=== PATIENT | female | born 1940 | race Caucasian/White ===

== ENCOUNTER 2017-03-30 19:46 | Inpatient (IN) | payer OTHER ==
[~2017-03-30] VITALS: Ht 160 cm; Wt 57.2 kg
--- NOTE | 2017-03-30 20:01 | ED DYSPNEA/ASTHMA COMPLAINT ---
History of Present Illness General Chief Complaint: Dyspnea (COPD, CHF, Other) Stated Complaint: BIBA SOB Source: patient Exam Limitations: no limitations Vital Signs & Intake/Output Vital Signs & Intake/Output Vital Signs Date Time Temp Pulse Resp B/P B/P Pulse O2 O2 Flow FiO2 Mean Ox Delivery Rate 04/03 1101 134/70 04/03 0823 98 Room Air Room Air 04/03 0636 98.3 73 18 164/88 97 Room Air 04/02 2211 97.8 73 18 146/78 97 Room Air 04/02 1600 Room Air 04/02 1600 96 Room Air 04/02 1516 98.3 79 20 122/60 95 Room Air ED Intake and Output 04/03 0000 04/02 1200 Intake Total 850 Output Total 1100 Balance -250 Intake, Oral 850 Number 0 Bowel Movements Output, Urine 1100 Allergies Coded Allergies: hydromorphone (From DILAUDID) (Severe, SEIZURE 03/30/17) codeine (Intermediate, SWELLINGS 03/30/17) propoxyphene (From DARVON) (SWELLING 03/30/17) Reconcile Medications Albuterol Sulfate (Proair Hfa) 90 MCG HFA.AER.AD 2 PUF INH PRN RESP. ( Reported) Apixaban (Eliquis) 5 MG TABLET 5 MG PO BID afib . Aspirin (Ecotrin*) 81 MG TABLET.DR 1 TAB PO DAILY HEART/BLOOD (Reported) Diazepam 5 MG TABLET 0.5 TAB PO PRN AMXIETY (Reported) Fluticasone Propionate 50 MCG/ACTUATION SPRAY.SUSP 1 SPRAY [place] DAILY ALLERGIES (Reported) Hydrochlorothiazide 25 MG TABLET 1 TAB PO DAILY DIURETIC (Reported) Lidocaine (Lidoderm) 5 % ADH..PATCH 1 PAT TOP DAILY PAIN (Reported) may wear up to 12 hours Omeprazole 20 MG TABLET.DR 1 TAB PO DAILY GI (Reported) Oseltamivir Phosphate (Tamiflu) 75 MG CAPSULE 75 MG PO BID influenza . Prednisone 5 MG TABLET 1 TAB PO DAILY COPD . Sotalol (Betapace) 80 MG TABLET 40 MG PO BID heart . Tiotropium Br/Olodaterol HCl (Stiolto Respimat Inhal [place]) 2.5 MCG-2.5 MCG/ ACTUATION MIST.INHAL 2 PUFF INH DAILY RESP. (Reported) Triage Note: SEE NURSES NOTES Triage Nurses Notes Reviewed? yes Onset: Gradual Duration: hour(s):, constant, continues in ED, getting worse, waxing and waning Severity: moderate, severe HPI: Patient presents for evaluation of worsening shortness of breath. Patient denies any fever, cold symptoms or productive cough. Past History Travel History Traveled to [place] past 21 day No Medical History Any Pertinent Medical History? see below for history Surgical History Surgical History: non-contributory Psychosocial History Illicit Drug Use: denies illicit drug use Family History Hx Contributory? No Review of Systems Review of Systems Constitutional: Reports: no symptoms. EENTM: Reports: no symptoms. Respiratory: Reports: see HPI. Cardiovascular: Reports: no symptoms. GI: Reports: no symptoms. Genitourinary: Reports: no symptoms. Musculoskeletal: Reports: no symptoms. Skin: Reports: no symptoms. Neurological/Psychological: Reports: no symptoms. Hematologic/Endocrine: Reports: no symptoms. Immunologic/Allergic: Reports: no symptoms. All Other Systems: Reviewed and Negative Physical Exam Physical Exam Respiratory: see below Comments: Gen.: Well-nourished, well-developed, no acute respiratory distress. Head: Normocephalic, atraumatic. Eyes: Normal inspection bilaterally Ears: Normal inspection bilaterally Nose: Normal inspection Throat/mouth : Moist mucosa Neck: Supple, full range of motion, no goiter Heart: Rapid IRRegular rate and rhythm, no murmurs rubs or gallops Lungs: Decreased air entry bilaterally with scattered end expiratory wheezing and mild rhonchi Chest: Nontender Back: Normal range of motion Abdomen: Soft, nontender, nondistended, normal bowel sounds Extremities: Normal range of motion grossly, equal radial pulses, no cyanosis clubbing or edema Neurologic: Cranial nerves grossly intact, speech is clear Skin: warm and dry Psychiatric: Calm, cooperative, no apparent delusions or hallucinations Core Measures ACS in differential dx? No CVA/TIA Diagnosis No Sepsis Present: No Sepsis Focused Exam Completed? No Progress Differential Diagnosis: AMI, bronchitis, CHF, COPD, unstable angina, DYSRHYTHMIA Plan of Care: Orders Procedure Date/time Status BASIC ELECTROLYTES PLUS BUN&CR 04/03 0734 Complete TOTAL TRIODOTHYROXINE 04/03 0600 Complete Discharge Patient 04/03 UNK Active MISSING MEDICATION FORM 04/03 UNK Active RT RE-EVALUATION 04/02 2303 Complete RT: Reevaluation 04/02 2300 Active AEROSOL CHG 04/02 UNK Complete Current Medications Sig/Yamila Start time Last Medication Dose Stop Time Status Admin Prednisone 10 MG DAILY 04/04 1000 AC 04/05 1000 Albuterol Sulfate 3 ML TID 04/03 1000 AC 04/03 (Proventil) 1235 Ipratropium [place] 2.5 ML TID 04/03 1000 AC 04/03 (Atrovent) 1235 Fluticasone 2 SPRAY DAILY 04/02 1000 AC 04/03 Propionate 0928 (Flonase) Nitroglycerin 0.4 MG Q 5 MINUTES X 3 DO.. 04/02 0215 AC 04/02 (Nitrostat) 0205 Docusate Sodium 100 MG DAILY 04/01 2100 AC 04/03 (Colace) 0927 Simethicone 80 MG Q6P PRN 04/01 2100 AC 04/01 (Mylicon) 2137 Sodium Chloride 2 SPRAY Q4P PRN 04/01 1100 AC 04/01 (Nasal) 1632 Melatonin 5 MG AT BEDTIME 03/31 2200 AC 04/01 (Melatonin) 213 Apixaban 5 MG BID 03/31 1529 AC 04/03 (Eliquis) 0927 Sotalol HCl 40 MG BID 03/31 1527 AC 04/03 (Betapace) 0926 Aspirin Buffered 81 MG DAILY 03/31 1000 AC 04/03 (Ecotrin) 0927 Guaifenesin 600 MG Q12 03/31 1000 AC 04/03 (Mucinex) 0927 Hydrochlorothiazide 25 MG DAILY 03/31 1000 AC 04/03 (Hydrodiuril) 0927 Lidocaine 1 PAT 0700 03/31 0700 AC 04/02 (Lidoderm) 0701 Omeprazole 20 MG DAILY AC 03/31 0700 AC 04/03 (Prilosec) 0628 Oseltamivir Phosphate 75 MG BID 03/31 0400 AC 04/03 (Tamiflu 75MG) 04/04 0359 0927 Acetaminophen 650 MG Q6P PRN 03/31 0315 AC (Tylenol) Laboratory Tests 04/03/17 0800: Anion Gap 12, Estimated GFR > 60, BUN/Creatinine Ratio 24.3 04/03/17 0715: TSH 0.381, Free T4 1.21, Total T3 0.86 L, CBC w Diff NO MAN DIFF REQ, RBC 4.65, MCV 87.1, MCH 29.0, MCHC 33.3, RDW 13.9, MPV 8.3, Gran % 66.4, Lymphocytes % 26.2, Monocytes % 6.8, Eosinophils % 0.1, Basophils % 0.5, Absolute Granulocytes 4.8, Absolute Lymphocytes 1.9, Absolute Monocytes 0.5, Absolute Eosinophils 0, Absolute Basophils 0 Diagnostic Imaging: Discussed w/RAD: Radiology Read. CXR Impression: PATIENT: WILFREDO GERARDO (APRIL) PRESENT AGE: 76 PATIENT ACCOUNT NO: [id number] : 40 LOCATION: [facility] ORDERING PHYSICIAN: Yonathan Holly MD SERVICE DATE: 03/30/17 EXAM TYPE : RAD - XRY-PORTABLE CHEST XRAY EXAMINATION: XR PORTABLE CHEST CLINICAL INFORMATION: CHF rapid A. fib axial COMPARISON: CT chest February 2017 TECHNIQUE: Portable frontal view of the chest was obtained. FINDINGS: There is an opacity in the right upper lobe corresponding to the mass seen on prior CT. Lungs otherwise clear Calcification of the dorsal aorta. Cardiac silhouette within normal limits. Pulmonary vascularity unremarkable Bone and soft tissues unremarkable IMPRESSION: Opacity in right upper lobe corresponds to the area of mass seen on prior CT Lungs otherwise clear. DICTATED BY: Bill Ferreira MD DATE/TIME DICTATED:03/30/172041 SHOVE UP:ALINE DATE/TIME TRANSCRIBED:03/30/172041 CONFIDENTIAL, DO NOT COPY WITHOUT APPROPRIATE AUTHORIZATION. <Electronically signed in Other Vendor System> SIGNED BY: Bill Ferreira MD 03/30/172048 Initial ED EKG: rAPID ATRIAL FIBRILLATION WITH NONSPECIFIC st SEGMENT CHANGES LIKELY RATE RELATED. Prior EKG: changed Rhythm Strip: atrial fibrillation Comments: 03/30/2017 8:27:00 PM Wilfredo is comfortable appearing and offers no specific complaint at this time. Her heart rate is in the 130s (after a Cardizem bolus and initiation of Cardizem drip) and auscultation of the lungs reveals improvement of the bilateral wheezing. She states she hasn't had her carvedilol today so I will order this. Her oxygen saturation is normal on the nasal cannula. I have held on inhaled bronchodilators due to the possibility of increasing her heart rate further. Departure Departure Disposition: STILL A PATIENT Condition: Stable Clinical Impression Primary Impression: New onset atrial fibrillation Referrals: Sherwin MANCINI,Tal Lopes Departure Forms: Customer Survey General Discharge Information Prescriptions: Current Visit Scripts Prednisone 1 TAB PO DAILY #30 TAB Ref 1 . Sotalol (Betapace) 40 MG PO BID #30 TAB Ref 1 . Apixaban (Eliquis) 5 MG PO BID #30 TAB Ref 1 . Oseltamivir Phosphate (Tamiflu) 75 MG PO BID #3 TAB . Admission Note Spoke With: Dulce Sommers MD Documentation of Exam: Documentation of any treatments & extenuating circumstances including Concerns Regarding Discharge (functional status, medication knowledge or non-compliance, living conditions, etc.) that warrant an admission rather than observation: Patient presents in new-onset rapid atrial fibrillation resulting in dyspnea and weakness. She now requires continuous cardiac monitoring for the possibility of uncontrolled atrial fibrillation with rapid ventricular response, hypotension, dyspnea, syncope and cardiorespiratory collapse. She cannot be safely treated as an outpatient. She now requires continuous cardiac monitoring, anticoagulation to prevent cardioembolic phenomenon, cardiology consultation and treatment with an IV Cardizem drip. Given the patient's age and new onset of atrial fibrillation patient will require adjustment of current medications in the edition of rate controlling medications and anticoagulation. I feel she will require a multiple day hospitalization. Critical Care Note Critical Care Note Critical Care Time: 30-74 min
[2017-03-30 20:29] LABS: ABSOLUTE BASOPHIL COUNT 0 /CUMM (0.0-0.2); ABSOLUTE EOSINOPHIL COUNT 0 /CUMM (0.0-0.7); ABSOLUTE GRANULOCYTE CT 10.7 /CUMM (1.4-6.5); ABSOLUTE LYMPH COUNT 2.1 /CUMM (1.2-3.4); ABSOLUTE MONOCYTE COUNT 0.7 /CUMM (0.10-0.60); BASOPHIL % 0.3 % (0.0-2.0); EOSINOPHIL % 0.3 % (0-5); GRANULOCYTE % 78.8 % (42.2-75.2); HEMATOCRIT 44.9 % (37-47); MEAN CORPUSCULAR HGB 28.7 PG (27.0-31.0); MEAN CORPUSCULAR HGB CONC 32.9 G/DL (33.0-37.0); MEAN CORPUSCULAR VOLUME 87.4 FL (81.0-99.0); MEAN PLATELET VOLUME 8.6 FL (7.4-10.4); PLATELET COUNT 230 /CUMM (130-400); RBC DISTRIBUTION WIDTH 13.9 % (11.5-14.5); RED BLOOD CELL CT 5.14 /CUMM (4.20-5.40); WHITE BLOOD CELL COUNT 13.5 /CUMM (4.8-10.8)
--- NOTE | 2017-03-30 20:49 | RADIOLOGY REPORT ---
EXAMINATION: XR PORTABLE CHEST CLINICAL INFORMATION: CHF rapid A. fib axial COMPARISON: CT chest February 2017 TECHNIQUE: Portable frontal view of the chest was obtained. FINDINGS: There is an opacity in the right upper lobe corresponding to the mass seen on prior CT. Lungs otherwise clear Calcification of the dorsal aorta. Cardiac silhouette within normal limits. Pulmonary vascularity unremarkable Bone and soft tissues unremarkable IMPRESSION: Opacity in right upper lobe corresponds to the area of mass seen on prior CT Lungs otherwise clear.
[2017-03-30 21:04] LABS: PT 10.1 SEC (9.4-12.5)
--- NOTE | 2017-03-30 22:31 | History & Physical ---
Marino MANCINI,Jose 03/30/17 2812: General Information and HPI MD Statement: I have seen and personally examined WILFREDO GERARDO (APRIL) and documented this H&P. The patient is a 76 year old F who presented with a patient stated chief complaint of [shortness of breath, cough, palpitations]. Source of Information: patient Exam Limitations: no limitations History of Present Illness: Patient is a 76-year-old female with a PMH significant for lung cancer, COPD, HTN, paroxysmal A. fib not on anticoagulation, who presented complaining of an approximately one-week history of worsening shortness of breath. Within the last week she's also been wheezing and experiencing intermittent palpitations and a nonproductive cough. She endorses nausea and dry heaving today as well as mild pain of her anterior shoulders which extends across her anterior chest as well. she denies any, fever, chills. On a previous hospital admission several years ago for pneumonia she had paroxysmal atrial fibrillation which reverted back to normal sinus rhythm she reports followed up with a stapler hand and is not currently on anticoagulation. Past History Travel History Traveled to [place] past 21 day No Medical History Cardiovascular: hypertension, hyperlipidemia, PAF Respiratory: COPD, Lung cancer Surgical History Surgical History: RLL resection, numerous spinal surgeries Past Family/Social History Family History Relations & Conditions if any Relation not specified for: FH: CAD (coronary artery disease) Psychosocial History Where do you live? Home Who Do You Live With? self Primary Language: Greek Smoking Status: Former Smoker (40) ETOH Use: occasional use Illicit Drug Use: denies illicit drug use Review of Systems Review of Systems Constitutional: Reports: malaise. Denies: chills, diaphoresis. EENTM: Denies: blurred vision, double vision, visual changes. Cardiovascular: Reports: chest pain, palpitations. Denies: syncope. Respiratory: Reports: cough, short of breath, wheezing. Denies: orthopnea. GI: Reports: no symptoms. Genitourinary: Reports: no symptoms. Musculoskeletal: Reports: joint pain (SHOULDER PAIN). Skin: Reports: no symptoms. Neurological/Psychological: Reports: no symptoms. Exam & Diagnostic Data Last 24 Hrs of Vital Signs/I&O Vital Signs Date Time Temp Pulse Resp B/P B/P Pulse O2 O2 Flow FiO2 Mean Ox Delivery Rate 03/31 0836 118/64 03/31 0812 96 Nasal 2.0L Cannula 03/31 0600 98.4 65 20 110/72 97 Nasal 1.0L Cannula 03/31 0216 98.4 74 20 110/72 96 Nasal 1.0L Cannula 03/31 0206 96 Room Air 03/31 0132 76 20 146/80 98 Room Air 03/31 0026 73 20 109/63 99 Room Air 03/31 0007 98 Nasal 2.0L Cannula 03/30 2334 98.5 96 22 111/62 97 2.0L 03/30 2200 135 129/69 03/30 2200 128 121/72 03/30 2102 98.5 135 22 129/69 96 Nasal 2.0L Cannula 03/30 2041 96 Nasal 2.0L Cannula 03/30 2005 147 137/84 03/30 1956 147 28 137/84 96 Nasal 2.0L Cannula Intake & Output 03/31 1600 03/31 0800 03/31 0000 Intake Total 220 0 Output Total 400 Balance -180 0 Intake, IV 100 Intake, Oral 120 0 Output, Urine 400 Patient 126 lb Weight Physical Exam General Appearance Alert, Oriented X3, Cooperative Skin Temp/Moisture Exam: Warm/Dry Sepsis Skin Exam (color): Normal for Ethnicity HEENT Atraumatic, PERRLA, EOMI, Mucous Membr. moist/pink Cardiovascular Regular Rate, Normal S1, Normal S2 Lungs DIFFUSE WHEEZING AND RHONCHI, DIMINISHED BREATH SOUNDS OF THE R LOWER LUNG FIELD, TACHYPNIC AND IN MILD RESPIRATORY DISTRESS, NOT USING ACCESSORY MUSCLES Abdomen Normal Bowel Sounds, Soft, No Tenderness Neurological Normal Speech, Strength at 5/5 X4 Ext, Normal Tone, Sensation Intact Extremities No Clubbing, No Cyanosis, No Edema Last 24 Hrs of Labs/Bunny: Laboratory Tests 03/31/17 040: Troponin I 0.04 03/31/17399: Anion Gap 12, Estimated GFR > 60, BUN/Creatinine Ratio 28.3 H, APTT > 120 *H, CBC w Diff NO MAN DIFF REQ, RBC 4.70, MCV 86.9, MCH 28.9, MCHC 33.3, RDW 14.2, MPV 8.5, Gran % 86.6 H, Lymphocytes % 12.0 L, Monocytes % 1.3 L, Eosinophils % 0.1, Basophils % 0, Absolute Granulocytes 4.7, Absolute Lymphocytes 0.6 L, Absolute Monocytes 0.1, Absolute Eosinophils 0, Absolute Basophils 0 03/30/172014: Anion Gap 17 H, Estimated GFR > 60, BUN/Creatinine Ratio 20.0, Glucose 209 H, Calcium 9.6, Magnesium 1.7, Total Bilirubin 0.6, Direct Bilirubin 0.3, AST 19, ALT 26, Alkaline Phosphatase 73, Troponin I < 0.01, Krp-N-Mdvmduyrmqf Pept 932 H, Total Protein 6.9, Albumin 4.3, PT 10.1, INR 0.96, D-Dimer High Sensitivty < 200, CBC w Diff NO MAN DIFF REQ, RBC 5.14, MCV 87.4, MCH 28.7, MCHC 32.9 L, RDW 13.9, MPV 8.6, Gran % 78.8 H, Lymphocytes % 15.6 L, Monocytes % 5.0, Eosinophils % 0.3, Basophils % 0.3, Absolute Granulocytes 10.7 H, Absolute Lymphocytes 2.1, Absolute Monocytes 0.7 H, Absolute Eosinophils 0, Absolute Basophils 0 Microbiology 03/31 010 NASOPHARYN: Influenza Virus A & B Rapid Smear - COMP INFLUENZA TYPE A Diagnostic Data EKG Results AFIB subsequently reverted to normal sinus rhythm CXR Results Opacity in right upper lobe corresponds to the area of mass seen on prior CT Lungs otherwise clear. Assessment/Plan Assessment: Patient is a 76-year-old female with a PMH significant for lung cancer, COPD, HTN, paroxysmal A. fib not on anticoagulation, who presented complaining of an approximately one-week history of worsening shortness of breath. She was found to be in A. fib with RVR which has subsequently reverted back to normal sinus rhythm, also wheezes on exam and was in respiratory distress. Problem list #New-onset A. fib with RVR, reverted back to sinus rhythm status post metoprolol and IV Cardizem drip #Influenza #COPD exacerbation #History of HTN, HLD, lung cancer Plan -Admit to telemetry -continuous telemetry monitoring -Cardizem has been discontinued now that she has converted back to normal sinus rhythm, HR in the 70s -Echocardiogram -IV heparin -Cardiology consult -Serial troponins and EKGs to rule out ACS -IV Solu-Medrol 40 mg twice a day -TRC/nebs -Mucinex -Tamiflu -Dr. Courtney was informed of this patient's admission through his answering service -Heart healthy diet -DVT prophylaxis: IV heparin, ALPS -CODE STATUS: Full code As Ranked By This Provider Problem List: 1. New onset atrial fibrillation Core Measures/Misc (11/12) Acute Coronary Syndrome ACS Diagnosis: No Congestive Heart Failure Congestive Heart Failure Diagnosis No Cerebrovascular Accident CVA/TIA Diagnosis: No VTE (View Protocol) VTE Risk Factors Age>40 No Mechanical VTE Prophylaxis d/t N/A MechProphylax Ordered No VTE Pharm Prophylaxis d/t NA PharmProphylax ordered Sepsis (View protocol) Sepsis Present: No Kathy Balbuena MD 03/31/17 0321: General Information and HPI Allergies/Medications Allergies: Coded Allergies: hydromorphone (From DILAUDID) (Severe, SEIZURE 03/30/17) codeine (Intermediate, SWELLINGS 03/30/17) propoxyphene (From DARVON) (SWELLING 03/30/17) Home Med list Albuterol Sulfate (Proair Hfa) 90 MCG HFA.AER.AD 2 PUF INH PRN RESP. ( Reported) Amoxicillin/Clavulanate Potass (Amox-Clav 875-125 MG Tablet) 875 MG-125 MG TABLET 1 TAB PO BID ABX (Reported) Aspirin (Ecotrin*) 81 MG TABLET.DR 1 TAB PO DAILY HEART/BLOOD (Reported) Carvedilol 25 MG TABLET 1 TAB PO BID HEART/BP (Reported) Diazepam 5 MG TABLET 0.5 TAB PO PRN AMXIETY (Reported) Fluticasone Propionate 50 MCG/ACTUATION SPRAY.SUSP 1 SPRAY [place]B DAILY ALLERGIES (Reported) Hydrochlorothiazide 25 MG TABLET 1 TAB PO DAILY DIURETIC (Reported) Lidocaine (Lidoderm) 5 % ADH..PATCH 1 PAT TOP DAILY PAIN (Reported) may wear up to 12 hours Omeprazole 20 MG TABLET.DR 1 TAB PO DAILY GI (Reported) Prednisone 10 MG TABLET 1 TAB PO DAILY STEROID (Reported) Tiotropium Br/Olodaterol HCl (Stiolto Respimat Inhal [place]) 2.5 MCG-2.5 MCG/ ACTUATION MIST.INHAL 2 PUFF INH DAILY RESP. (Reported) Resident Review Statement Resident Statement: examined this patient, discussed with international first officer, agreed with international first officer, reviewed EMR data (avail), reviewed images, amended to note Other Findings: 76-year-old female with past medical history of hypertension, COPD, remote history of paroxysmal A. fib, who presents with a one-week history of worsening shortness of breath and nonproductive cough. She reports felling palpitations within this time frame as well which she attributed to being anxious, [place] also has nausea but no vomiting. She denies chest pain, syncope, blurry vision or one -sided weakness. 2 years ago while being admitted to the hospital for an upper respiratory treat tract infection, she was diagnosed with atrial fibrillation she converted while in the hospital and was not sent home on any anticoagulation. 20 years ago she was diagnosed with lung cancer in her right lower lung which was treated with surgical resection. However 3 years ago she had a recurrence of cancer in the right lung which is inoperable and she is currently taking up Opdivo, last treatment was [address] Courtney. Her lung cancer is currently in remission. She was previously on nasal cannula O2 at home but about 1 year ago it was stopped due to Medicare not paying for it anymore because she had improved PFTs. Exam-AAO 3, mild respiratory distress, expiratory wheezing, regular rate and rhythm, nontender abdomen with normal bowel sounds, no pedal edema. Labs as above; rapid flu positive Assessment 1. Paroxysmal atrial fibrillation-possibly due to influenza Patient converted back to sinus rhythm after starting Cardizem drip 2. Influenza 3. Hypertension 4. History of COPD 5. History of lung cancer in the right lung on Opdivocurrently in remission Plan Admit to telemetry unit for close monitoring Continue IV Heparin; pt will likely need personal investment adviser AC which can be decided by managing team/stapler hand ANGELLA Cardizem drip Trend EKG and troponin Start Tamiflu 75 mg twice daily 5 days TRC nebs Oxygen as needed IV Solu-Medrol 40 mg twice daily Mucinex twice daily Cardiology consult in a.m. Courtesy consult to Dr. Silvestre in a.m. Check echocardiogram CBC, BEP, Lipid panel, TSH Resume important home medications Heart Healthy diet DVT ppx with IV Heparin Dulce Tsang 03/31/17 0511: Attending MD Review Statement Attending Statement Attending MD Statement: examined this patient, discuss w/resident/PA/PST SUPERVISOR, agreed w/resident/PA/PST SUPERVISOR, reviewed EMR data (avail), reviewed images, amended to note Attending Assessment/Plan: CC: Heart racing, shortness of breath PMH: HTN, COPD, history of lung cancer 20 years back S/P resection recurrence since last 3 years Patient came to ER for chest tightness, palpitations and worsening shortness of breath wheezing. Since last 4-5 days patient has been noticing upper respiratory symptoms with nasal congestion, nasal discharge, postnasal drip it was followed by chest congestion, cough with mucus production, denies any fever or chills cough and shortness of breath progressively worsened but this evening she noticed pain running around anterior part of the chest around shoulders and then left arm pain as if somebody is stabbing on her left arm. She was noticing severe palpitations, wheezing and could not catch her breath so she called EMS. She denies any leg swellings, she cannot lie down flat. She also complains of abdominal pain, bandlike, nonradiating, non-severe. Whenever she has upper respiratory symptoms she is worried about getting infection in her chest. She is from [place], moved back to [place] in December, lost 13 year partner in [place] recently. She quit smoking 20 years back. She had Hx a fib 2 year back, transiently, not on AC. Vitals: Afebrile, pulse 147 on arrival, RR 28, blood pressure 137/54, saturating 96% on 2 L nasal cannula On exam: A O 3, cooperative, in moderate respiratory distress, accessory muscles in use, neck supple, JVD normal, no lymphadenopathy, mucosa dry, no focal neurological deficit, no dependent edema, no obvious skin rashes or inflammation CVS: S1-S2, RRR. RS: Diffuse wheezing in all lung sanchez. Abdomen: Soft, NT, ND, bowel sounds present. Labs: WBC 13.5, hemoglobin 14.8, hematocrit 44.9, platelet 230, neutrophils 78%, sodium 139, potassium 3.0, chloride 97, BUN 25, creatinine 0.6, BUN 12, glucose 209, calcium 9.6, proBNP 932, INR 0.96, d-dimer less than 200 Influenza positive CXR: Opacity in right upper lobe corresponds to the area of mass seen on prior CT Lungs otherwise clear. Initial ECG A. fib with RVR possible ST depressions probably secondary to rate Assessment and plan 76-year-old female with past medical history significant for COPD, hypertension and recurrence of her lung cancer presented in ER for upper respiratory symptoms since last 3-4 days now progressively worsening with shortness of breath, cough with mucus production, denies fever or chills but this evening she noticed severe shortness of breath, severe wheezing, chest tightness and palpitations, she called EMS and was brought in ER. Patient was found to be in A. fib with RVR and severely tachypneic. She was given Cardizem IV push followed by started on Cardizem drip. Patient responded to this treatment well and later on she converted to sinus rhythm. Given her comorbidities she was started on heparin drip. On auscultation she is diffusely wheezing throughout the lung sanchez, appears that has COPD exacerbation secondary to upper respiratory infection. She is influenza positive, will treat her influenza given her underlying lung cancer and other comorbidities. + A. fib with RVR + COPD exacerbation + Influenza a + History of right sided lung cancer recurrence, HTN - Admit to telemetry - Try to taper Cardizem, patient received a dose of carvedilol in ER - Continue IV heparin - Serial troponin and EKGs - Cardiology consult in a.m. - 2-D echocardiogram - IV methylprednisolone 40 mg twice a day - Continue by mouth Tamiflu - Continue Mucinex, TR nebs - Inform Dr. Silvestre about patient being in hospital
[2017-03-30] MEDS ORDERED: PREDNISONE10 M2 PO (22:37)
[2017-03-30] MEDS ORDERED: AMOX-CLAV 875-1 EACH PO (22:38)
[2017-03-30] MEDS ORDERED: OMEPRAZOLE20 M3 PO (22:39)
[2017-03-30] MEDS ORDERED: ASPIRIN EC81 M1 PO (22:40)
[2017-03-30] MEDS ORDERED: HYDROCHLOROTHIA25 M1 PO (22:40)
[2017-03-30] MEDS ORDERED: LIDODERM1 EACH TOP (22:40)
[2017-03-30] MEDS ORDERED: DIAZEPAM5 M1 PO (22:45)
[2017-03-30] MEDS ORDERED: FLUTICASONE PRO16 GM NASB (22:45)
[2017-03-30] MEDS ORDERED: STIOLTO RESPIMAT4 GM INH (22:46)
[2017-03-30] MEDS ORDERED: PROAIR HFA8.5 GM INH (22:48)
[2017-03-30] MEDS ORDERED: CARVEDILOL25 M1 PO (23:08)
[2017-03-31 02:16] VITALS: BP 110/72
[2017-03-31 04:37] LABS: ABSOLUTE BASOPHIL COUNT 0 /CUMM (0.0-0.2); ABSOLUTE EOSINOPHIL COUNT 0 /CUMM (0.0-0.7); ABSOLUTE GRANULOCYTE CT 4.7 /CUMM (1.4-6.5); ABSOLUTE LYMPH COUNT 0.6 /CUMM (1.2-3.4); ABSOLUTE MONOCYTE COUNT 0.1 /CUMM (0.10-0.60); BASOPHIL % 0 % (0.0-2.0); EOSINOPHIL % 0.1 % (0-5); GRANULOCYTE % 86.6 % (42.2-75.2); HEMATOCRIT 40.8 % (37-47); MEAN CORPUSCULAR HGB 28.9 PG (27.0-31.0); MEAN CORPUSCULAR HGB CONC 33.3 G/DL (33.0-37.0); MEAN CORPUSCULAR VOLUME 86.9 FL (81.0-99.0); MEAN PLATELET VOLUME 8.5 FL (7.4-10.4); PLATELET COUNT 228 /CUMM (130-400); RBC DISTRIBUTION WIDTH 14.2 % (11.5-14.5)
--- NOTE | 2017-03-31 05:12 | Admission Certification ---
Admission Certification Certification Statement - As attending physician, I certify that at the time of - admission, based on clinical presentation, severity of - symptoms, need for further diagnostic testing and - therapeutic interventions, and risk of adverse outcomes - without in-hospital treatment, in my clinical assessment, - this patient requires an acute hospital stay for a minimum - of two nights or longer. I have also considered psychsocial - factors such as support system, advanced age, financial - issues, cognitive issues, and failed out-patient treatments, - past re-admission history, safety of patient, and lack of - compliance as applicable. Specific rationale supporting this admission is: A. fib with RVR, Influenza, COPD exacerbation
[2017-03-31 05:22] LABS: PTT > 120 SEC (25-37)
[2017-03-31 05:27] LABS: WHITE BLOOD CELL COUNT 5.4 /CUMM (4.8-10.8)
[2017-03-31 06:00] VITALS: BP 110/72
--- NOTE | 2017-03-31 06:34 | PN- Housestaff ---
See Addendum Subjective Follow-up For: 1. Paroxysmal atrial fibrillation-possibly due to influenza Patient converted back to sinus rhythm after starting Cardizem drip 2. Influenza 3. Hypertension 4. History of COPD 5. History of lung cancer in the right lung on Opdivocurrently in remission Complaints: no complaints Tele-Events Since Last Visit: SR 66-74; converted from Afib to SR overnight Subjective: Pt seen and examined, feels much better compared to yesterday but still SOB Review of Systems Constitutional: Reports: no symptoms. Objective Last 24 Hrs of Vital Signs/I&O Vital Signs Date Time Temp Pulse Resp B/P B/P Pulse O2 O2 Flow FiO2 Mean Ox Delivery Rate 03/31 0836 118/64 03/31 0812 96 Nasal 2.0L Cannula 03/31 0600 98.4 65 20 110/72 97 Nasal 1.0L Cannula 03/31 0216 98.4 74 20 110/72 96 Nasal 1.0L Cannula 03/31 0206 96 Room Air 03/31 0132 76 20 146/80 98 Room Air 03/31 0026 73 20 109/63 99 Room Air 03/31 0007 98 Nasal 2.0L Cannula 03/30 2334 98.5 96 22 111/62 97 2.0L 03/30 2200 135 129/69 03/30 2200 128 121/72 03/30 2102 98.5 135 22 129/69 96 Nasal 2.0L Cannula 03/30 2042 96 Nasal 2.0L Cannula 03/30 2006 147 137/84 03/30 1956 147 28 137/84 96 Nasal 2.0L Cannula Intake & Output 03/31 1600 03/31 0800 03/31 0000 Intake Total 220 0 Output Total 400 Balance -180 0 Intake, IV 100 Intake, Oral 120 0 Output, Urine 400 Patient 126 lb Weight Physical Exam General Appearance: Alert, Oriented X3, Cooperative HEENT: PERRLA, Mucous Membr. moist/pink Cardiovascular: Regular Rate, Normal S1, Normal S2 Lungs: expiratory wheezing Abdomen: Normal Bowel Sounds, Soft, No Tenderness Extremities: No Edema, Normal Pulses Current Medications: Current Medications Sig/Yamila Start time Last Medication Dose Route Stop Time Status Admin Acetaminophen 650 MG Q6P PRN 03/31 0315 AC PO Aspirin Buffered 81 MG DAILY 03/31 1000 AC 03/31 PO 0836 Carvedilol 25 MG BID 03/31 1000 CAN PO Carvedilol 25 MG BID 03/30 2200 AC 03/31 PO 0836 Diltiazem HCl 10 MG ONCE ONE 03/30 2014 DC 03/30 IV 03/30 Diltiazem HCl 125 MG Q12H 03/30 2014 DC 03/30 Sodium Chloride 100 ML IV 203 Diltiazem HCl 0 .STK-MED ONE 03/30 2009 DC IV Diltiazem HCl 0 .STK-MED ONE 03/30 2008 DC .ROUTE Guaifenesin 600 MG Q12 03/31 1000 AC 03/31 PO 0835 Heparin Sodium 25,000 UNIT Q24H 03/30 2345 AC 03/31 (Porcine) IV 0016 Sodium Chloride 500 ML Heparin Sodium 0 .STK-MED ONE 03/30 2208 DC (Porcine) .ROUTE Heparin Sodium 4,000 UNIT ONCE ONE 03/30 2129 DC 03/30 (Porcine) IV 03/30 Heparin Sodium 25,000 UNIT Q24H 03/30 2129 DC 03/30 (Porcine) IV 2230 Sodium Chloride 500 ML Hydrochlorothiazide 25 MG DAILY 03/31 1000 AC 03/31 PO 0836 Ipratropium [place] 2.5 ML ONCE ONE 03/30 2345 DC 03/30 INH 03/30 2346 2353 Ipratropium [place] 2.5 ML ONCE ONE 03/30 2030 DC 03/30 INH 03/30 2030 204 Lidocaine 1 PAT 0700 03/31 0700 AC 03/31 EXT 0605 Melatonin 5 MG AT BEDTIME 03/31 2200 AC PO Methylprednisolone 40 MG DAILY 03/31 1000 AC 03/31 IV 0835 Methylprednisolone 0 .STK-MED ONE 03/30 2040 DC .ROUTE Methylprednisolone 125 MG ONCE ONE 03/30 2029 DC 03/30 IV 03/30 2030 210 Omeprazole 20 MG DAILY AC 03/31 0700 AC 03/31 PO 0605 Oseltamivir Phosphate 75 MG BID 03/31 0400 AC 03/31 PO 04/04 0359 0836 Potassium Chloride 0 .STK-MED ONE 03/30 2324 DC PO Potassium Chloride 40 MEQ ONCE ONE 03/30 2315 DC 03/30 PO 03/30 2316 2348 Prednisone 10 MG DAILY 03/31 1000 CAN PO Last 24 Hrs of Lab/Bunny Results Last 24 Hrs of Labs/Mics: Laboratory Tests 03/31/17 0400: Troponin I 0.04 03/31/17 0400: Anion Gap 12, Estimated GFR > 60, BUN/Creatinine Ratio 28.3 H, APTT > 120 *H, CBC w Diff NO MAN DIFF REQ, RBC 4.70, MCV 86.9, MCH 28.9, MCHC 33.3, RDW 14.2, MPV 8.5, Gran % 86.6 H, Lymphocytes % 12.0 L, Monocytes % 1.3 L, Eosinophils % 0.1, Basophils % 0, Absolute Granulocytes 4.7, Absolute Lymphocytes 0.6 L, Absolute Monocytes 0.1, Absolute Eosinophils 0, Absolute Basophils 0 03/30/172014: Anion Gap 17 H, Estimated GFR > 60, BUN/Creatinine Ratio 20.0, Glucose 209 H, Calcium 9.6, Magnesium 1.7, Total Bilirubin 0.6, Direct Bilirubin 0.3, AST 19, ALT 26, Alkaline Phosphatase 73, Troponin I < 0.01, Jni-E-Aipadoedivd Pept 932 H, Total Protein 6.9, Albumin 4.3, PT 10.1, INR 0.96, D-Dimer High Sensitivty < 200, CBC w Diff NO MAN DIFF REQ, RBC 5.14, MCV 87.4, MCH 28.7, MCHC 32.9 L, RDW 13.9, MPV 8.6, Gran % 78.8 H, Lymphocytes % 15.6 L, Monocytes % 5.0, Eosinophils % 0.3, Basophils % 0.3, Absolute Granulocytes 10.7 H, Absolute Lymphocytes 2.1, Absolute Monocytes 0.7 H, Absolute Eosinophils 0, Absolute Basophils 0 Microbiology 03/31 101 NASOPHARYN: Influenza Virus A & B Rapid Smear - COMP INFLUENZA TYPE A Lines/Diet/Fluids Lines: peripheral lines Assessment/Plan Assessment: 76-year-old female with past medical history of hypertension, COPD, remote history of paroxysmal A. fib, who presents with a one-week history of worsening shortness of breath and nonproductive cough. She reports felling palpitations within this time frame as well which she attributed to being anxious, callejas also has nausea but no vomiting. She denies chest pain, syncope, blurry vision or one -sided weakness. 2 years ago while being admitted to the hospital for an upper respiratory treat tract infection, she was diagnosed with atrial fibrillation she converted while in the hospital and was not sent home on any anticoagulation. Assessment 1. Paroxysmal atrial fibrillation-possibly due to influenza. Patient converted back to sinus rhythm after starting Cardizem drip 2. Influenza 3. Hypertension 4. History of COPD 5. History of lung cancer in the right lung on Opdivocurrently in remission Plan Continue telemetry unit for close monitoring Continue IV Heparin for now; pt will likely need fdc AC which can be decided by managing team/veterinary practitioner Pt converted to SR overnight; cardizem discontinued Troponin EKG and troponin neg Continue Tamiflu 75 mg twice daily 5 days TRC nebs/Oxygen as needed IV Solu-Medrol 40 mg twice daily Mucinex twice daily Cardiology consult in a.m. Courtesy consult to Dr. Silvestre called F/U echocardiogram F/U CBC, BEP, Lipid panel, TSH Resume important home medications IV heprain for DVT ppx Problem List: 1. New onset atrial fibrillation Pain Ratin Pain Location: n/a Pain Goal: Remain pain free Pain Plan: current plan Tomorrow's Labs & Rationales: cbc, bep
[2017-03-31 14:41] VITALS: BP 100/60
--- NOTE | 2017-03-31 14:59 | Cons- Cardiology ---
General Information and HPI Consulting Request Date of Consult: 03/31/17 Requested By: Dulce Sommers MD History of Present Illness: Yair is a 76 year old female with history of lung cancer, COPD, hypertension and paroxysmal atrial fibrillation. Over the past couple weeks this patient has noted shortness of breath and was being treated for an URI. Her breathing continued to decompensate and she was brought to the ER where she was discovered to be in atrial fibrillation with increased heart rate. Ischemic ST depressions were also noted on her ECG. The patient did feel a mild chest discomfort radiating into her left arm and left neck during her episode of tachycardia. Yesterday she did feel some palpitations. The patient has a non-productive cough without fever or chills. Allergies/Medications Allergies: Coded Allergies: hydromorphone (From DILAUDID) (Severe, SEIZURE 03/30/17) codeine (Intermediate, SWELLINGS 03/30/17) propoxyphene (From DARVON) (SWELLING 03/30/17) Home Med List: Albuterol Sulfate (Proair Hfa) 90 MCG HFA.AER.AD 2 PUF INH PRN RESP. ( Reported) Amoxicillin/Clavulanate Potass (Amox-Clav 875-125 MG Tablet) 875 MG-125 MG TABLET 1 TAB PO BID ABX (Reported) Aspirin (Ecotrin*) 81 MG TABLET.DR 1 TAB PO DAILY HEART/BLOOD (Reported) Carvedilol 25 MG TABLET 1 TAB PO BID HEART/BP (Reported) Diazepam 5 MG TABLET 0.5 TAB PO PRN AMXIETY (Reported) Fluticasone Propionate 50 MCG/ACTUATION SPRAY.SUSP 1 SPRAY [place] DAILY ALLERGIES (Reported) Hydrochlorothiazide 25 MG TABLET 1 TAB PO DAILY DIURETIC (Reported) Lidocaine (Lidoderm) 5 % ADH..PATCH 1 PAT TOP DAILY PAIN (Reported) may wear up to 12 hours Omeprazole 20 MG TABLET.DR 1 TAB PO DAILY GI (Reported) Prednisone 10 MG TABLET 1 TAB PO DAILY STEROID (Reported) Tiotropium Br/Olodaterol HCl (Stiolto Respimat Inhal [place]) 2.5 MCG-2.5 MCG/ ACTUATION MIST.INHAL 2 PUFF INH DAILY RESP. (Reported) Review of Systems Review of Systems: A review of systems is remarkable for back pain related to a neuropathy and a band-like tightness around her waist while lying down. Past History Travel History Traveled to [place] past 21 day No Medical History Cardiovascular: hypertension, hyperlipidemia, PAF Respiratory: COPD, Lung cancer Other Medical Hx: neuropathy Surgical History Surgical History: lobectomy of right lung Family History Relations & Conditions If Any: Relation not specified for: FH: CAD (coronary artery disease) Family History Reviewed? Mother: of AAA Son: CAD in 30's Psychosocial History Where Do You Live? Home Who Do You Live With? self Primary Language: Spanish Smoking Status: Former Smoker (40/ Quit 20 yrs ago) ETOH Use: occasional use Illicit Drug Use: denies illicit drug use Exam & Diagnostic Data Vital Signs and I&O Vital Signs Date Time Temp Pulse Resp B/P B/P Pulse O2 O2 Flow FiO2 Mean Ox Delivery Rate 03/31 1441 98.2 69 20 100/60 96 03/31 1132 Nasal 2.0L Cannula 03/31 0836 118/64 03/31 0812 96 Nasal 2.0L Cannula 03/31 0600 98.4 65 20 110/72 97 Nasal 1.0L Cannula 03/31 0216 98.4 74 20 110/72 96 Nasal 1.0L Cannula 03/31 0206 96 Room Air 03/31 0132 76 20 146/80 98 Room Air 03/31 0026 73 20 109/63 99 Room Air 03/31 0007 98 Nasal 2.0L Cannula 03/30 2334 98.5 96 22 111/62 97 2.0L 03/30 2200 135 129/69 03/30 2200 128 121/72 03/30 2102 98.5 135 22 129/69 96 Nasal 2.0L Cannula 03/30 2041 96 Nasal 2.0L Cannula 03/30 2005 147 137/84 03/30 1956 147 28 137/84 96 Nasal 2.0L Cannula Intake & Output 03/31 1600 03/31 0800 03/31 0000 03/30 1600 03/30 0800 03/30 0000 Intake Total 220 0 Output Total 400 Balance -180 0 Intake, IV 100 Intake, Oral 120 0 Output, Urine 400 Patient 126 lb Weight Physical Exam: General: WD/thin female in NAD; alert and oriented x 3 HEENT: NC/AT, PERRL, EOMI Neck: no JVD, no carotid bruit Heart: RRR w/o murmur Lungs: scant wheezing with decreased air movement ABdomen: soft, NT, +ve bowel sounds Extremities: no edema Assessment/Plan Assessment/Plan * This patient has paroxysmal atrial fibrillation with rapid heart rate upon initial presentation. This patient will have a propensity toward atrial fibrillation from elevated pulmonary pressues after her lobectomy for lung cancer. In consideration of this she should be on chronic anticoagulation for stroke prophylaxis. Begin Eliquis 5mg BID. DC Coreg and begin Sotolol at 40mg BID to maintain a sinus rhythm and to control both her heart rate and blood pressure. * check TFT's including a free T4 * Obtain and echocardiogram * This patient likely has myocardial ischemia. We will consider a pharmacologic stress test verses cardiac catheterization when more stable. * Continue therapy for URI Consult Acknowledgment - Thank you for your consult request.
[2017-03-31 15:04] LABS: PTT 69 SEC (25-37)
[2017-03-31 23:30] VITALS: BP 108/54
[2017-04-01 07:04] VITALS: BP 98/67
[2017-04-01 07:53] LABS: ABSOLUTE BASOPHIL COUNT 0 /CUMM (0.0-0.2); ABSOLUTE EOSINOPHIL COUNT 0 /CUMM (0.0-0.7); ABSOLUTE GRANULOCYTE CT 5.1 /CUMM (1.4-6.5); ABSOLUTE LYMPH COUNT 0.8 /CUMM (1.2-3.4); ABSOLUTE MONOCYTE COUNT 0.2 /CUMM (0.10-0.60); BASOPHIL % 0.1 % (0.0-2.0); EOSINOPHIL % 0 % (0-5); GRANULOCYTE % 83.8 % (42.2-75.2); HEMATOCRIT 38.1 % (37-47); MEAN CORPUSCULAR HGB CONC 33.3 G/DL (33.0-37.0); MEAN CORPUSCULAR VOLUME 87.2 FL (81.0-99.0); MEAN PLATELET VOLUME 8.8 FL (7.4-10.4); PLATELET COUNT 226 /CUMM (130-400); RED BLOOD CELL CT 4.37 /CUMM (4.20-5.40); WHITE BLOOD CELL COUNT 6.1 /CUMM (4.8-10.8)
--- NOTE | 2017-04-01 09:57 | PN- Housestaff ---
Melvin MANCINI,Isis 04/01/17 0956: Subjective Follow-up For: 1. Paroxysmal atrial fibrillation-possibly due to influenza Patient converted back to sinus rhythm after starting Cardizem drip 2. Influenza 3. Hypertension 4. History of COPD 5. History of lung cancer in the right lung on Opdivocurrently in remission Subjective: Patient was seen and examined today. Patient states she continues to have SOB and cough. Patient states she has SOB on exertion, had to shower very slowly this morning. Complains of postnasal drip. Denies chest pain or palpitations. Denies fever/chills, n/v/c/d. Patient notes she had tremors 2 days ago. Denies any today. No acute events overnight Review of Systems Constitutional: Reports: weakness. Cardiovascular: Reports: no symptoms. Respiratory: Reports: see HPI, cough, short of breath. Gastrointestinal: Reports: no symptoms. Genitourinary: Reports: no symptoms. Musculoskeletal: Reports: no symptoms. Neurological/Psychological: Reports: no symptoms. Objective Last 24 Hrs of Vital Signs/I&O Vital Signs Date Time Temp Pulse Resp B/P B/P Pulse O2 O2 Flow FiO2 Mean Ox Delivery Rate 04/01 0825 97 Nasal 2.0L Cannula 04/01 0704 97.3 71 20 98/67 99 / 0700 99 Nasal 1.0L Cannula 04/01 0000 Room Air 03/31 2330 97.8 70 18 108/54 99 Room Air / 2110 96 Room Air / 1630 96 Room Air / 1600 Room Air / 1441 98.2 69 20 100/60 96 / 1132 Nasal 2.0L Cannula Intake & Output 04/01 1600 04/01 0800 02/ 0000 Intake Total 120 120 Output Total Balance 120 120 Intake, Oral 120 120 Physical Exam General Appearance: Alert, Oriented X3, Cooperative, No Acute Distress HEENT: Atraumatic, Mucous Membr. moist/pink Cardiovascular: Normal S1, Normal S2, irregular rate Lungs: diffuse wheezing with prolonged expiration Abdomen: Normal Bowel Sounds, Soft, No Tenderness Extremities: No Clubbing, No Cyanosis, No Edema, Normal Pulses, No Tenderness/ Swelling Vascular: Normal Pulses, Pulses Symmetrical Current Medications: Current Medications Sig/Yamila Start time Last Medication Dose Route Stop Time Status Admin Acetaminophen 650 MG Q6P PRN 03/31 0315 AC PO Albuterol Sulfate 3 ML EVERY 4 HRS/AWAKE 03/31 1200 AC 04/01 INH 0700 Apixaban 5 MG BID 03/31 1529 AC 04/01 PO 0917 Aspirin Buffered 81 MG DAILY 03/31 1000 AC 04/01 PO 0916 Carvedilol 25 MG BID 03/30 2200 DC 03/31 PO 0836 Fluticasone 2 SPRAY DAILY 04/02 1000 AC Propionate [place] Guaifenesin 600 MG Q12 03/31 1000 AC 04/01 PO 0916 Heparin Sodium 25,000 UNIT Q24H 03/30 2345 DC 03/31 (Porcine) IV 0016 Sodium Chloride 500 ML Hydrochlorothiazide 25 MG DAILY 03/31 1000 AC 04/01 PO 0916 Ipratropium [place] 2.5 ML EVERY 4 HRS/AWAKE 03/31 1200 AC 04/01 INH 0700 Lidocaine 1 PAT 0700 03/31 0700 AC 04/01 EXT 0648 Melatonin 5 MG AT BEDTIME 03/31 2200 AC 03/31 PO 2129 Methylprednisolone 40 MG BID 03/31 2200 AC 04/01 IV 0917 Methylprednisolone 40 MG DAILY 03/31 1000 DC 03/31 IV 0835 Omeprazole 20 MG DAILY AC 03/31 0700 AC 04/01 PO 0647 Oseltamivir Phosphate 75 MG BID 03/31 0400 AC 04/01 PO 04/04 0359 0917 Sotalol HCl 40 MG BID 03/31 1527 AC 04/01 PO 0918 Last 24 Hrs of Lab/Bunny Results Last 24 Hrs of Labs/Mics: Laboratory Tests 04/01/17 0630: Anion Gap 13, Estimated GFR > 60, BUN/Creatinine Ratio 33.3 H, CBC w Diff NO MAN DIFF REQ, RBC 4.37, MCV 87.2, MCH 29.0, MCHC 33.3, RDW 14.0, MPV 8.8, Gran % 83.8 H, Lymphocytes % 12.4 L, Monocytes % 3.7, Eosinophils % 0, Basophils % 0.1, Absolute Granulocytes 5.1, Absolute Lymphocytes 0.8 L, Absolute Monocytes 0.2, Absolute Eosinophils 0, Absolute Basophils 0 03/31/17 1425: APTT 69 H 03/31/17 1055: Triglycerides Cancelled, Cholesterol Cancelled, LDL Cholesterol, Calc Cancelled, HDL Cholesterol Cancelled, Cholesterol/HDL Ratio Cancelled, TSH Cancelled 03/31/17 1055: Troponin I 0.03, Triglycerides 105, Cholesterol 203 H, LDL Cholesterol, Calc 126, HDL Cholesterol 56, Cholesterol/HDL Ratio 4, TSH 0.048 L Assessment/Plan Assessment: 76-year-old female with past medical history of hypertension, COPD, remote history of paroxysmal A. fib, who presents with a one-week history of worsening shortness of breath and nonproductive cough. She reports felling palpitations within this time frame as well which she attributed to being anxious, callejas also has nausea but no vomiting. She denies chest pain, syncope, blurry vision or one -sided weakness. 2 years ago while being admitted to the hospital for an upper respiratory treat tract infection, she was diagnosed with atrial fibrillation she converted while in the hospital and was not sent home on any anticoagulation. Assessment 1. Paroxysmal atrial fibrillation-possibly due to influenza. Patient converted back to sinus rhythm after starting Cardizem drip 2. Influenza 3. Hypertension 4. History of COPD 5. History of lung cancer in the right lung on Opdivocurrently in remission 6. Euthyroid sick syndrome vs hyperthyroidism Plan Continue telemetry unit for close monitoring Continue Eliquis Continue Tamiflu 75 mg twice daily 5 days TRC nebs/Oxygen as needed IV Solu-Medrol 40 mg discontinued. Switched to PO Prednisone 40mg daily starting 04/02 Mucinex twice daily Continue Flonase Cardiology on board ECHO Courtesy consult to Dr. Silvestre called Resume important home medications Endocrinology consulted Repeat TSH, T4 Total T3, TSI, thyroid antibodies Thyroid ultrasound DVT PPx: on eliquis Diet: heart healthy Code: full code Problem List: 1. COPD exacerbation 2. New onset atrial fibrillation Pain Ratin Pain Location: n/a Pain Goal: Remain pain free Pain Plan: n/a Tomorrow's Labs & Rationales: cbc jayme Andrews MD,[place] 04/01/17 1100: Attending MD Review Statement Attending Statement Attending MD Statement: examined this patient, discuss w/resident/PA/CHILD DEVELOPMENT INSTRUCTOR, agreed w/resident/PA/CHILD DEVELOPMENT INSTRUCTOR, reviewed EMR data (avail), discussed with nursing, discussed with case mgmt, amended to note Attending Assessment/Plan: Patient seen and examined. Resting comfortably not in any acute distress. She remains jovial. Reports of her reason is improving. Reports mild cough. Denies dyspnea with exertion. She is afebrile hemodynamically stable. She remains in normal sinus rhythm on telemetry monitoring. On examination today she has adequate entry bilaterally with very mild expiratory rhonchi. She is saturating 97-99% on 1-2 L of oxygen. Recommendations: Complete course of Tamiflu. Wean off oxygen supplementation as tolerated. Discontinue Solu-Medrol and begin patient on prednisone 40 mg orally daily tomorrow. Continue bronchodilator therapy. Cardiology consultation appreciated. Patient was started on sotalol to help maintain normal sinus rhythm. She also started on anticoagulant therapy with Eliquis. She is in agreement with this plan. Repeat EKG this morning and follow with the cardiology service regarding need for pharmacological stress test versus cardiac catheterization. -Patient has a low TSH level but normal free T4 level. She is also clinically euthyroid. Recommend evaluation by the endocrinology service.
--- NOTE | 2017-04-01 11:56 | Cons- Endocrinology ---
General Information and HPI Consulting Request Date of Consult: 04/01/17 Requested By: medical team Reason for Consult: abnormal thyroid tests Source of Information: patient, old records Exam Limitations: no limitations History of Present Illness: This 76-year-old woman with a known history of lung cancer and COPD came to the emergency room with shortness of breath and weakness. Her nasal swab was positive for influenza a. She had developed an episode of atrial fibrillation and has converted to sinus rhythm. Her thyroid function tests were done and her TSH was suppressed at 0.040 with a free T4 in the normal range of 2.09. In speaking with the patient she has not been told of a thyroid problem before. However one sister has thyroid disease as well as 2 of her sister's children. Apparently her parents were not known to have thyroid disease. The patient states that she does have some trouble swallowing but this is related to an esophageal problem. She does have to undergo dilatations of her esophagus. Allergies/Medications Allergies: Coded Allergies: hydromorphone (From DILAUDID) (Severe, SEIZURE 03/30/17) codeine (Intermediate, SWELLINGS 03/30/17) propoxyphene (From DARVON) (SWELLING 03/30/17) Home Med List: Albuterol Sulfate (Proair Hfa) 90 MCG HFA.AER.AD 2 PUF INH PRN RESP. ( Reported) Amoxicillin/Clavulanate Potass (Amox-Clav 875-125 MG Tablet) 875 MG-125 MG TABLET 1 TAB PO BID ABX (Reported) Aspirin (Ecotrin*) 81 MG TABLET.DR 1 TAB PO DAILY HEART/BLOOD (Reported) Carvedilol 25 MG TABLET 1 TAB PO BID HEART/BP (Reported) Diazepam 5 MG TABLET 0.5 TAB PO PRN AMXIETY (Reported) Fluticasone Propionate 50 MCG/ACTUATION SPRAY.SUSP 1 SPRAY [place] DAILY ALLERGIES (Reported) Hydrochlorothiazide 25 MG TABLET 1 TAB PO DAILY DIURETIC (Reported) Lidocaine (Lidoderm) 5 % ADH..PATCH 1 PAT TOP DAILY PAIN (Reported) may wear up to 12 hours Omeprazole 20 MG TABLET.DR 1 TAB PO DAILY GI (Reported) Prednisone 10 MG TABLET 1 TAB PO DAILY STEROID (Reported) Tiotropium Br/Olodaterol HCl (Stiolto Respimat Inhal [place]) 2.5 MCG-2.5 MCG/ ACTUATION MIST.INHAL 2 PUFF INH DAILY RESP. (Reported) Review of Systems Review of Systems Constitutional: Denies: chills, fever. Cardiovascular: Denies: chest pain. Respiratory: Reports: cough, short of breath, sputum production. GI: Denies: nausea, vomiting. Musculoskeletal: Denies: back pain. Past History Travel History Traveled to [place] past 21 day No Medical History Cardiovascular: hypertension, hyperlipidemia, PAF Respiratory: COPD, Lung cancer Other Medical Hx: neuropathy Surgical History Surgical History: RLL resection numerous spinal surgeries Family History Relations & Conditions If Any: Relation not specified for: FH: CAD (coronary artery disease) Psychosocial History Where Do You Live? Home Who Do You Live With? self Primary Language: Cambodian Smoking Status: Former Smoker (40/ Quit 20 yrs ago) ETOH Use: occasional use Illicit Drug Use: denies illicit drug use Exam & Diagnostic Data Last 24 Hrs of Vital Signs/I&O Vital Signs Date Time Temp Pulse Resp B/P B/P Pulse O2 O2 Flow FiO2 Mean Ox Delivery Rate 04/01 1134 98 Room Air 04/01 0825 97 Nasal 2.0L Cannula 04/01 0704 97.3 71 20 98/67 99 04/01 0700 99 Nasal 1.0L Cannula 04/01 0000 Room Air 03/31 2330 97.8 70 18 108/54 99 Room Air 03/31 2110 96 Room Air 03/31 1630 96 Room Air 03/31 1600 Room Air 03/31 1441 98.2 69 20 100/60 96 Intake & Output / 1600 / 0800 02/04 0000 Intake Total 120 120 Output Total Balance 120 120 Intake, Oral 120 120 Physical Exam General Appearance: alert, awake Head: normal appearance Respiratory: decreased breath sounds, rhonchi Cardiovascular: regular rate/rhythm Gastrointestinal: normal bowel sounds Extremities: normal inspection Labs/Bunny Results: Laboratory Tests 04/01 03/31 0630 1425 Chemistry Sodium (137 - 145 mmol/L) 138 Potassium (3.5 - 5.1 mmol/L) 3.7 Chloride (98 - 107 mmol/L) 98 Carbon Dioxide (22 - 30 mmol/L) 27 Anion Gap (5 - 16) 13 BUN (7 - 17 mg/dL) 20 H Creatinine (0.5 - 1.0 mg/dL) 0.6 Estimated GFR (>60 ml/min) > 60 BUN/Creatinine Ratio (7 - 25 %) 33.3 H Coagulation APTT (25 - 37 SEC) 69 H Hematology CBC w Diff NO MAN DIFF REQ WBC (4.8 - 10.8 /CUMM) 6.1 RBC (4.20 - 5.40 /CUMM) 4.37 Hgb (12.0 - 16.0 G/DL) 12.7 Hct (37 - 47 %) 38.1 MCV (81.0 - 99.0 FL) 87.2 MCH (27.0 - 31.0 PG) 29.0 MCHC (33.0 - 37.0 G/DL) 33.3 RDW (11.5 - 14.5 %) 14.0 Plt Count (130 - 400 /CUMM) 226 MPV (7.4 - 10.4 FL) 8.8 Gran % (42.2 - 75.2 %) 83.8 H Lymphocytes % (20.5 - 51.1 %) 12.4 L Monocytes % (1.7 - 9.3 %) 3.7 Eosinophils % (0 - 5 %) 0 Basophils % (0.0 - 2.0 %) 0.1 Absolute Granulocytes (1.4 - 6.5 /CUMM) 5.1 Absolute Lymphocytes (1.2 - 3.4 /CUMM) 0.8 L Absolute Monocytes (0.10 - 0.60 /CUMM) 0.2 Absolute Eosinophils (0.0 - 0.7 /CUMM) 0 Absolute Basophils (0.0 - 0.2 /CUMM) 0 Assessment/Plan Assessment/Plan This patient has abnormal thyroid function tests with a suppressed TSH and a normal free T4. This could be due to sick euthyroid versus mild hyperthyroidism. She did have an episode of atrial fibrillation. There is a family history of thyroid disease. We need to investigate her thyroid function further with repeat free T4 TSH and total T3 as well as thyroid antibodies including anti-TPO, antithyroglobulin and thyroid stimulating immunoglobulin. The patient's left lobe of the thyroid seems somewhat enlarged and I would also order a thyroid ultrasound. Patient's blood sugar was 209 when she was in the emergency room. I would recheck some fingerstick blood sugars before meals and at bedtime. Consult Acknowledgment - Thank you for your consult request.
[2017-04-01 16:01] VITALS: BP 140/60
--- NOTE | 2017-04-01 16:07 | PN- Cardiology ---
Subjective Subjective: * Patient continues to complain of shortness of breath with minimal exertion. She also noted brief palpitations. * sinus rhythm Objective Vital Signs and I&Os Vital Signs Date Time Temp Pulse Resp B/P B/P Pulse O2 O2 Flow FiO2 Mean Ox Delivery Rate 04/01 1601 97.8 81 20 140/60 95 / 1134 98 Room Air 04/01 0825 97 Nasal 2.0L Cannula 04/01 0704 97.3 71 20 98/67 99 04/01 0700 99 Nasal 1.0L Cannula 04/01 0000 Room Air 03/31 2330 97.8 70 18 108/54 99 Room Air 03/31 2110 96 Room Air 03/31 1630 96 Room Air Intake & Output 04/01 1600 04/01 0800 04/01 0000 03/31 1600 03/31 0800 03/31 0000 Intake Total 420 120 120 550 220 0 Output Total 600 400 Balance 420 120 120 -50 -180 0 Intake, IV 20 150 100 Intake, Oral 400 120 120 400 120 0 Output, Urine 600 400 Patient 126 lb Weight Physical Exam: General: WD/thin female in NAD; alert and oriented x 3 HEENT: NC/AT, PERRL, EOMI Neck: no JVD, no carotid bruit Heart: RRR w/o murmur Lungs: bilateral wheezing with decreased air movement ABdomen: soft, NT, +ve bowel sounds Extremities: no edema Assessment/Plan Assessment/Plan * Continue current dose of Sotolol to help maintain a sinus rhythm. I am not inclined to increase her beta dany due to active wheezing. This patient will have a propensity toward atrial fibrillation from elevated pulmonary pressues after her lobectomy for lung cancer. Continue Eliquis for stroke prophylaxis. * Patient is noted to be hypothyroid. * Obtain and echocardiogram * This patient likely has myocardial ischemia. We will consider a pharmacologic stress test verses cardiac catheterization when more stable. * Continue therapy for URI Continue telemetry? Yes
[2017-04-01 21:41] VITALS: BP 158/82
--- NOTE | 2017-04-02 01:53 | Event Note ---
Event Note Event Note: S: Informed by the nurse taking care of the patient that this patient was experiencing chest pain. Visited the patient who was in bed complaining of chest pain. Chest pain located substernally. Rated at an 8/10 in severity. Described as a pressure type of pain radiating to the jaw. Patient also states that she feels anxious. B: 76-year-old female with past medical history of hypertension, COPD, remote history of paroxysmal A. fib, who presents with a one-week history of worsening shortness of breath and nonproductive cough. Currently being treated with Tamiflu. A/R: Vitals: NSR. BP: 182/98. HR: 79. O2. 95% on RA. Ordered the following: EKG, Troponin, BEP Nitroglycerine SL was also administered. Patient did respond to nitroglycerin and states that her symptoms were better controlled a few minutes later. When offered she stated she did not want any other medications for pain relief. Informed Attending. 2.[address] of the chest without contrast to rule out pneumonia. 6.04 AM. Attempted to go speak to the patient to update her on CT results, however she was asleep. Given the fact that she was unable to sleep for most of the evening, will sign out to AM to update the patient. Will also request a pulmonology consult due to findings on CT scan. Attending made aware. Will conitnue to monitor.
--- NOTE | 2017-04-02 03:52 | CT SCAN REPORT ---
EXAMINATION: CT CHEST WITHOUT CONTRAST CLINICAL INFORMATION: Pneumonia. Chest pain. Opacity right upper lobe on prior CT of chest COMPARISON: CT chest March 07, 2017. Chest x-ray March 30, 2017 TECHNIQUE: Multidetector volumetric CT imaging of the chest was done. Axial MIP volume rendering provided. Sagittal and coronal reformatted images were obtained. DLP: 194.25 mGy-cm FINDINGS: PLEURA/LUNGS: There is a irregular lesion with air-fluid level and spiculated margins with air bronchograms right upper lobe posteriorly. This is associated pleural thickening. The air-fluid level appears to be in the pleural space loculated right apical pneumothorax associated with this lesion. The lesion measures approximately 3.6 x 2.7 x 4.5 cm. Lesion is similar to the prior CAT scan of March 07, 2017. Loculated hydropneumothorax associated with the lesion though is new. The cavity appear to be fluid-filled entirely on the prior CAT scan. The 1 cm lesion seen adjacent to the major fissure on the left upper lobe laterally is unchanged as well, image 19 (3). Linear scar is seen in the right lower lobe subpleural lung axial image 20 (3) measuring about 1 cm which is stable. There is scarring at the right lung base. There is a pleural-based density at the medial left lower lobe that is stable measuring approximately 1.9 x 2.3 x 2.5 cm, axial image 47 (3), coronal image 53 There is emphysematous lucencies of lung. No acute infiltrate. MEDIASTINUM: No mediastinal mass or bulky adenopathy. There is vascular wall calcifications of aorta and the coronary arteries. AXILLA: No lymphadenopathy. UPPER ABDOMEN: Status post costectomy. No focal lesions seen in the visualized portions of liver, spleen, kidneys or pancreas. The adrenal glands are normal. OSSEOUS STRUCTURES: Stable mild compression deformity superior endplate of T11. Mild degenerative spondylosis of the spine. No suspicious osseous lesion. IMPRESSION: Stable lung masses. The largest lesion is in the right upper lobe. 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 The air in the pleural space is new since exam of March 07, 2017. Stable left upper lobe and left lower lobe and right lower lobe lesions . Lesion are suspicious for neoplasm.
[2017-04-02 06:57] VITALS: BP 152/78
--- NOTE | 2017-04-02 07:09 | Cons- Oncology ---
General Information and HPI Consulting Request Date of Consult: 04/02/17 Requested By: Dulce Sommers MD History of Present Illness: 76-year-old woman with known metastatic non-small cell lung carcinoma now admitted with shortness of breath chest pain and found to be in rapid atrial fibrillation I recently assumed care for this patient. She 2 weeks ago restarted opdivo therapy. Currently the patient is less short of breath. She denied hemoptysis or chest pain. She denied like swelling. The patient has had atrial fibrillation in the past but has not been on chronic anticoagulation. Allergies/Medications Allergies: Coded Allergies: hydromorphone (From DILAUDID) (Severe, SEIZURE 03/30/17) codeine (Intermediate, SWELLINGS 03/30/17) propoxyphene (From DARVON) (SWELLING 03/30/17) Home Med List: Albuterol Sulfate (Proair Hfa) 90 MCG HFA.AER.AD 2 PUF INH PRN RESP. ( Reported) Amoxicillin/Clavulanate Potass (Amox-Clav 875-125 MG Tablet) 875 MG-125 MG TABLET 1 TAB PO BID ABX (Reported) Aspirin (Ecotrin*) 81 MG TABLET.DR 1 TAB PO DAILY HEART/BLOOD (Reported) Carvedilol 25 MG TABLET 1 TAB PO BID HEART/BP (Reported) Diazepam 5 MG TABLET 0.5 TAB PO PRN AMXIETY (Reported) Fluticasone Propionate 50 MCG/ACTUATION SPRAY.SUSP 1 SPRAY [place] DAILY ALLERGIES (Reported) Hydrochlorothiazide 25 MG TABLET 1 TAB PO DAILY DIURETIC (Reported) Lidocaine (Lidoderm) 5 % ADH..PATCH 1 PAT TOP DAILY PAIN (Reported) may wear up to 12 hours Omeprazole 20 MG TABLET.DR 1 TAB PO DAILY GI (Reported) Prednisone 10 MG TABLET 1 TAB PO DAILY STEROID (Reported) Tiotropium Br/Olodaterol HCl (Stiolto Respimat Inhal [place]) 2.5 MCG-2.5 MCG/ ACTUATION MIST.INHAL 2 PUFF INH DAILY RESP. (Reported) Current Medications: Current Medications Sig/Yamila Start time Last Medication Dose Route Stop Time Status Admin Acetaminophen 650 MG Q6P PRN 03/31 0315 AC PO Albuterol Sulfate 3 ML EVERY 4 HRS/AWAKE 03/31 1200 AC 04/02 INH 0329 Apixaban 5 MG BID 03/31 1529 AC 04/01 PO 2138 Aspirin Buffered 81 MG DAILY 03/31 1000 AC 04/01 PO 0916 Docusate Sodium 100 MG DAILY 04/01 2100 AC 04/02 PO 0701 Fluticasone 2 SPRAY DAILY 04/02 1000 DC Propionate [place] Fluticasone 2 SPRAY DAILY 04/02 1000 AC Propionate [place] Guaifenesin 600 MG Q12 03/31 1000 AC 04/01 PO 2137 Hydrochlorothiazide 25 MG DAILY 03/31 1000 AC 04/01 PO 0916 Ipratropium [place] 2.5 ML EVERY 4 HRS/AWAKE 03/31 1200 AC 04/02 INH 0329 Lidocaine 1 PAT 0700 03/31 0700 AC 04/02 EXT 0701 Melatonin 5 MG AT BEDTIME 03/31 2200 AC 04/01 PO 2137 Methylprednisolone 40 MG BID 03/31 2200 DC 04/01 IV 0917 Nitroglycerin 0.4 MG Q 5 MINUTES X 3 DO.. 04/02 0215 AC 04/02 SL 0205 Omeprazole 20 MG DAILY AC 03/31 0700 AC 04/02 PO 0701 Oseltamivir Phosphate 75 MG BID 03/31 0400 AC 04/01 PO 04/04 0359 2137 Phosphate 250 MG 0700 04/02 0700 DC PO 04/02 0701 Potassium Chloride 10 MEQ 0700 04/02 0700 DC PO 04/02 0701 Prednisone 40 MG DAILY 04/02 1000 AC PO Simethicone 80 MG Q6P PRN 04/01 2100 AC 04/01 PO 2137 Sodium Chloride 2 SPRAY Q4P PRN 04/01 1100 AC 04/01 [place] 1632 Sotalol HCl 40 MG BID 03/31 1527 AC 04/01 PO 2137 Review of Systems Review of Systems: Patient denies fever or chills. Patient denies headaches or dizziness. Patient denies nausea vomiting diarrhea change in bowel habits. She is complaining of urinary frequency without dysuria or hematuria. Patient denies new bone aches or focal neurologic deficit Past History Travel History Traveled to [place] past 21 day No Medical History Cardiovascular: hypertension, hyperlipidemia, PAF Respiratory: COPD, Lung cancer Other Medical Hx: neuropathy Surgical History Surgical History: RLL resection numerous spinal surgeries Family History Relations & Conditions If Any: Relation not specified for: FH: CAD (coronary artery disease) Psychosocial History Where Do You Live? Home Who Do You Live With? self Primary Language: Samoan Smoking Status: Former Smoker (40/ Quit 20 yrs ago) ETOH Use: occasional use Illicit Drug Use: denies illicit drug use Exam & Diagnostic Data Vital Signs and I&O Vital Signs Date Time Temp Pulse Resp B/P B/P Pulse O2 O2 Flow FiO2 Mean Ox Delivery Rate 04/02 0657 98.0 65 18 152/78 95 Room Air 04/02 0339 95 Room Air 04/01 2141 Room Air 04/01 214 97.5 77 18 158/82 97 Room Air 04/01 2110 98 Room Air 04/01 1710 96 Room Air 04/01 1601 97.8 81 20 140/60 95 04/01 1134 98 Room Air 04/01 0825 97 Nasal 2.0L Cannula Intake & Output 04/02 0800 04/02 0000 04/01 1600 Intake Total 420 Output Total Balance 420 Intake, IV 20 Intake, Oral 400 Gen.: in NAD ENT: Sclera anicteric Chest: Normal respiratory effort, decreased breath sounds at the bases Abdomen: Soft, bowel sounds present, no tenderness, no rebound Extremities: Without clubbing, cyanosis, or asymmetric edema Neurology: Alert and oriented 3, no gross deficit Skin: No rashes Last 48 Hours of Lab Results: Laboratory Tests 04/02 04/01 04/01 0200 1300 1137 Chemistry Sodium (137 - 145 mmol/L) 141 Potassium (3.5 - 5.1 mmol/L) 3.6 Chloride (98 - 107 mmol/L) 100 Carbon Dioxide (22 - 30 mmol/L) 28 Anion Gap (5 - 16) 13 BUN (7 - 17 mg/dL) 17 Creatinine (0.5 - 1.0 mg/dL) 0.5 Estimated GFR (>60 ml/min) > 60 BUN/Creatinine Ratio (7 - 25 %) 34.0 H Phosphorus (2.5 - 4.5 mg/dL) 2.7 Troponin I (< 0.11 ng/ml) < 0.01 TSH Cancelled Free T4 Cancelled Total T3 Cancelled Thyroid Stim Immunoglob Pending Immunology Thyroglobulin Antibody Cancelled Thyroid Peroxidase Ab Cancelled 04/01 03/31 03/31 0630 1425 1055 Chemistry Sodium (137 - 145 mmol/L) 138 Potassium (3.5 - 5.1 mmol/L) 3.7 Chloride (98 - 107 mmol/L) 98 Carbon Dioxide (22 - 30 mmol/L) 27 Anion Gap (5 - 16) 13 BUN (7 - 17 mg/dL) 20 H Creatinine (0.5 - 1.0 mg/dL) 0.6 Estimated GFR (>60 ml/min) > 60 BUN/Creatinine Ratio (7 - 25 %) 33.3 H Magnesium (1.6 - 2.3 mg/dL) 2.1 Triglycerides Cancelled Cholesterol Cancelled LDL Cholesterol, Calc Cancelled HDL Cholesterol Cancelled Cholesterol/HDL Ratio Cancelled TSH (0.270 - 4.200 uIU/mL) 0.036 L Cancelled Free T4 (0.78 - 2.44 ng/dL) 1.37 Total T3 (0.97 - 1.69 ng/mL) 0.92 L Coagulation APTT (25 - 37 SEC) 69 H Hematology CBC w Diff NO MAN DIFF REQ WBC (4.8 - 10.8 /CUMM) 6.1 RBC (4.20 - 5.40 /CUMM) 4.37 Hgb (12.0 - 16.0 G/DL) 12.7 Hct (37 - 47 %) 38.1 MCV (81.0 - 99.0 FL) 87.2 MCH (27.0 - 31.0 PG) 29.0 MCHC (33.0 - 37.0 G/DL) 33.3 RDW (11.5 - 14.5 %) 14.0 Plt Count (130 - 400 /CUMM) 226 MPV (7.4 - 10.4 FL) 8.8 Gran % (42.2 - 75.2 %) 83.8 H Lymphocytes % (20.5 - 51.1 %) 12.4 L Monocytes % (1.7 - 9.3 %) 3.7 Eosinophils % (0 - 5 %) 0 Basophils % (0.0 - 2.0 %) 0.1 Absolute Granulocytes (1.4 - 6.5 /CUMM) 5.1 Absolute Lymphocytes (1.2 - 3.4 /CUMM) 0.8 L Absolute Monocytes (0.10 - 0.60 /CUMM) 0.2 Absolute Eosinophils (0.0 - 0.7 /CUMM) 0 Absolute Basophils (0.0 - 0.2 /CUMM) 0 Immunology Thyroglobulin Antibody (< 61 U/mL) < 15 Thyroid Peroxidase Ab (< 61 U/mL) < 28 /03 1055 Chemistry Troponin I (< 0.11 ng/ml) 0.03 Triglycerides (<150 mg/dL) 105 Cholesterol (<200 MG/DL) 203 H LDL Cholesterol, Calc (65 - 129 mg/dL) 126 HDL Cholesterol (40 - 60 mg/dL) 56 Cholesterol/HDL Ratio (0.00 - 4.23 %) 4 TSH (0.270 - 4.200 uIU/mL) 0.048 L Imaging/Other Studies: CT-chest-no contrast-lung mass, question evidence of broncho-pleural fistula Assessment/Plan Assessment: 1. respiratory status/cardiac status-paroxysmal atrial fibrillation in a patient with known lung cancer. Given the chest pain and dyspnea, differential diagnosis would include pulmonary embolism Recommend- As per cardiology CTA chest 2. Advanced lung cancer-Opdivo on hold 3. Abnormal thyroid function tests-typically Opdivo is associated with autoimmune hypothyroidism Recommend- As per endocrinology Recommendations: .. Consult Acknowledgment - Thank you for your consult request.
--- NOTE | 2017-04-02 07:36 | PN- Housestaff ---
Alf MANCINI,Annie 04/02/17 0736: Subjective Follow-up For: Influenza, COPD exacerbation, atrial fibrillation Complaints: complains of bilateral loin pain of 7 x 10 in intensity with cough Tele-Events Since Last Visit: Sinus rhythm heart rate 70 Subjective: Patient was seen and examined at bedside. She was sitting in her bed comfortably saturating at room air. Overnight patient had chest pain with stable vitals. 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 She says she doesn't have any difficulty in breathing or chest pain but complains of 7 x 10 bilateral loin pain with no radiation. She also has on and off cough. She denies chest pain, chest pressure, fever with chills, no sputum production, weakness, dizziness. Review of Systems Constitutional: Reports: no symptoms. EENTM: Reports: no symptoms. Cardiovascular: Reports: no symptoms. Respiratory: Reports: cough. Gastrointestinal: Reports: no symptoms. Genitourinary: Reports: no symptoms. Musculoskeletal: Reports: no symptoms. Skin: Reports: no symptoms. Objective Last 24 Hrs of Vital Signs/I&O Vital Signs Date Time Temp Pulse Resp B/P B/P Pulse O2 O2 Flow FiO2 Mean Ox Delivery Rate 04/02 0657 98.0 65 18 152/78 95 Room Air 04/02 0339 95 Room Air 04/01 2141 Room Air 04/01 2141 97.5 77 18 158/82 97 Room Air 04/01 2110 98 Room Air 04/01 1710 96 Room Air 04/01 1601 97.8 81 20 140/60 95 04/01 1134 98 Room Air Physical Exam General Appearance: Alert, Oriented X3, Cooperative, No Acute Distress Skin: No Rashes HEENT: PERRLA Cardiovascular: Normal S1, Normal S2, No Murmurs Lungs: left-sided wheeze Abdomen: Soft Neurological: Strength at 5/5 X4 Ext Extremities: No Edema Current Medications: Current Medications Sig/Yamila Start time Last Medication Dose Route Stop Time Status Admin Acetaminophen 650 MG Q6P PRN 03/31 0315 AC PO Albuterol Sulfate 3 ML EVERY 4 HRS/AWAKE 03/31 1200 AC 04/02 INH 0329 Apixaban 5 MG BID 03/31 1529 AC / PO 2138 Aspirin Buffered 81 MG DAILY 03/31 1000 AC 04/01 PO 0916 Docusate Sodium 100 MG DAILY 04/01 2100 AC 04/02 PO 0701 Fluticasone 2 SPRAY DAILY 04/02 1000 DC Propionate [place] Fluticasone 2 SPRAY DAILY 04/02 1000 AC Propionate [place] Guaifenesin 600 MG Q12 03/31 1000 AC 04/01 PO 2137 Hydrochlorothiazide 25 MG DAILY 03/31 1000 AC 04/01 PO 0916 Ipratropium [place] 2.5 ML EVERY 4 HRS/AWAKE 03/31 1200 AC 04/02 INH 0329 Lidocaine 1 PAT 0700 03/31 0700 AC 04/02 EXT 0701 Melatonin 5 MG AT BEDTIME 03/31 2200 AC 04/01 PO 2137 Methylprednisolone 40 MG BID 03/31 2200 DC 04/01 IV 0917 Nitroglycerin 0.4 MG Q 5 MINUTES X 3 DO.. 04/02 0215 AC 04/02 SL 0205 Omeprazole 20 MG DAILY AC 03/31 0700 AC 04/02 PO 0701 Oseltamivir Phosphate 75 MG BID 03/31 0400 AC 04/01 PO 04/04 0359 2137 Phosphate 250 MG 0700 04/02 0700 DC PO 04/02 0701 Potassium Chloride 10 MEQ 0700 04/02 0700 DC PO 04/02 0701 Prednisone 40 MG DAILY 04/02 1000 AC PO Simethicone 80 MG Q6P PRN 04/01 2100 AC 04/01 PO 2137 Sodium Chloride 2 SPRAY Q4P PRN 04/01 1100 AC 04/01 [place] 1632 Sotalol HCl 40 MG BID 03/31 1527 AC 04/01 PO 2137 Last 24 Hrs of Lab/Bunny Results Last 24 Hrs of Labs/Mics: Laboratory Tests 04/02/17 0200: Anion Gap 13, Estimated GFR > 60, BUN/Creatinine Ratio 34.0 H, Phosphorus 2.7, Troponin I < 0.01 04/01/17 1300: Thyroid Stim Immunoglob Pending 04/01/17 1137: TSH Cancelled, Free T4 Cancelled, Total T3 Cancelled, Thyroglobulin Antibody Cancelled, Thyroid Peroxidase Ab Cancelled Assessment/Plan Assessment: 76-year-old female with past medical history of hypertension, COPD, remote history of paroxysmal A. fib, who presents with a one-week history of worsening shortness of breath and nonproductive cough. CT 04/01/17 Stable lung masses. The largest lesion is in the right upper lobe. 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 The air in the pleural space is new since exam of March 07, 2017. Stable left upper lobe and left lower lobe and right lower lobe lesions . Lesion are suspicious for neoplasm. Assessment and plan 1. Paroxysmal atrial fibrillation-possibly due to influenza. Patient converted back to sinus rhythm after starting Cardizem drip. Patient is on Eliquis 5 mg 2. Influenza 3. Hypertension 4. History of COPD 5. History of lung cancer in the right lung on Opdivocurrently in remission 6. Low TSH Plan Continue telemetry unit for close monitoring Continue Eliquis 5 mg for atrial fibrillation. Continue Tamiflu 75 mg twice daily for 2 more days Continue by mouth prednisone and TRC nebs/Oxygen as needed Mucinex twice daily, Continue Flonase Patient had a TSH of 0.036 level. Endocrinology was consulted. This can be secondary to nivolumab's or euthyroid sick syndrome/hyperthyroidism. Off note patient is going for CTA with contrast which is going to change her thyroid function. We will get a repeat TSH, free T4 and T3 tomorrow. Endocrine he also wanted a ultrasound for thyroid which we will do it as an outpatient. DVT PPx: on eliquis Diet: heart healthy Code: full code Problem List: 1. New onset atrial fibrillation 2. Low TSH level 3. Lung cancer Pain Ratin Pain Location: BOTH LOIN Pain Goal: Remain pain free Pain Plan: TYLENOL Tomorrow's Labs & Rationales: TSH T4,CBC Darryl MANCINI,Bradley 04/02/17 1055: Attending MD Review Statement Attending Statement Attending MD Statement: examined this patient, discuss w/resident/PA/[employer], agreed w/resident/PA/[employer]PA[employer], reviewed EMR data (avail), discussed with nursing, discussed with case mgmt, amended to note Attending Assessment/Plan: Patient seen and examined. Overnight events noted. She is currently resting comfortably and not in acute distress. She complains of mild chest tightness bilaterally. Reports mild nonproductive cough. Denies shortness of breath with exertion. She is afebrile hemodynamically stable. She is maintaining saturation on room air. On examination she has adequate entry bilaterally with mild expiratory wheeze. Recommendations: -Continue Tamiflu for her influenza infection. Continue bronchodilator course. Continue prednisone at current dose. -Oncology consultation appreciated. CT angiogram has been ordered as recommended to rule out pulmonary embolism. -She remains in normal sinus rhythm. Anticoagulation has been started with Eliquis. She will continue this upon discharge. -Endocrinology consultation appreciated. Follow-up thyroid studies. Thyroid ultrasound will be done as an outpatient upon discharge. Opdivo has been documented to cause hypothyroidism and thyroiditis -Obtain second set of cardiac enzymes. Follow-up with the cardiology service regarding need to pursue further ischemic workup in the inpatient setting. 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 -Anticipate discharge in the next 24 hours if she remains clinically stable.
--- NOTE | 2017-04-02 08:05 | PN- Student ---
Subjective Subjective: 76 year old female with a history of HTN, HL, COPD, paroxysmal atrial fibrillation, and lung CA s/p lobectomy 20 years ago with recurrence 3 years ago , currently in remission and on Opdivo, followed by Dr. Courtney who was admitted to our service on 03/30/17 after presenting to our ED secondary to worsening SOB, a nonproductive cough, and palpitations x 1 week. On initial presentation she also complained of nausea, dry heaving, and a painful anterior shoulder and anterior chest wall. She was found to be in atrial fibrillation with a rapid ventricular rate, which was converted with metoprolol and IV cardizem. Overnight , the patient complained of 8/10 substernal chest pressure, radiating to her jaw , and anxiety. She was found to be in NSR, with a BP 182/98, HR 79, and O2 95 RA. Sublingual nitroglycerin provided immediate relief and an EKG, toponin levels, and CTPA with contrast was ordered. 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 Consider stress versus cath once patient is stabilized. Endocrinology: [04/01/17] TSH 0.04, fT4 2.09; Left lobe of the thryoid slightly enlarged, consider U/S; Random glucose 209 in ED, consider rechecking sugars [04/02/17] TSH was 0.036 with a free T4 of 1.37 and a total T3 of 0.92. Antithyroglobulin and antithyroid peroxidase antibodies and these were negative. Thyroid-stimulating immunoglobulin is pending. CTPA w/ contrast will likely influence thyroid levels. Recommendation: Hold off on Rx thyroid medications; Order U/S; recheck thyroid hormones tomorrow. Conclusion: Sick thyroid syndrome versus milder hyperthyroidism versus side effect of Opdivo IMAGING: [04/02/17] CTA chest: 1. Stable nodular masslike parenchymal opacities. Stable loculated hydropneumothorax noted adjacent to right upper lobe irregular effusion with associated bronchiectasis. 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 Further assessment with PET/CT or biopsy of the larger right upper lobe and left lower lobe lesions recommended. 2. There is no definite CTA evidence of acute pulmonary embolism. 3. Moderate atherosclerotic disease of the aorta and the coronary arteries. 4. No evidence of mediastinal or hilar lymphadenopathy. [04/02/17] CT chest: Stable lung masses. The largest lesion is in the right upper lobe. 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 The air in the pleural space is new since exam of March 07, 2017. Stable left upper lobe and left lower lobe and right lower lobe lesions . Lesion are suspicious for neoplasm. [03/30/17] CXR: Opacity in right upper lobe corresponds to the area of mass seen on prior CT. Lungs otherwise clear. [04/01/17] EKG: Irregulary irregular rhythm suggestive of atrial fibrillation. Romero waves noted in lead II suggestive of hypothermia. PHYSICAL EXAMINATION Vitals: Stable. HR 65, RR 18, BP 152/78, O2 95 RA General: AOx3, expressing irritation with all of the consults and no coherent plan. However, she was polite and cooperative. Cardiovascular: RR, no murmurs, rubs, or gallops appreciated. Pulmonary: Diminished breath sounds over both lung sanchez on the right. Mild expiratory wheezes noted over all lung sanchez on the left. GI: Soft, nontender Extremities: DP/PT pulses 2+ b/l. No edema. Results Results: Laboratory Tests 04/02/17 0200: Anion Gap 13, Estimated GFR > 60, BUN/Creatinine Ratio 34.0 H, Phosphorus 2.7, Troponin I < 0.01 04/01/17 1300: Thyroid Stim Immunoglob Pending 04/01/17 1137: TSH Cancelled, Free T4 Cancelled, Total T3 Cancelled, Thyroglobulin Antibody Cancelled, Thyroid Peroxidase Ab Cancelled 04/01/17 0630: Anion Gap 13, Estimated GFR > 60, BUN/Creatinine Ratio 33.3 H, Magnesium 2.1, TSH 0.036 L, Free T4 1.37, Total T3 0.92 L, CBC w Diff NO MAN DIFF REQ, RBC 4.37, MCV 87.2, MCH 29.0, MCHC 33.3, RDW 14.0, MPV 8.8, Gran % 83.8 H, Lymphocytes % 12.4 L, Monocytes % 3.7, Eosinophils % 0, Basophils % 0.1, Absolute Granulocytes 5.1, Absolute Lymphocytes 0.8 L, Absolute Monocytes 0.2, Absolute Eosinophils 0, Absolute Basophils 0, Thyroglobulin Antibody < 15, Thyroid Peroxidase Ab < 28 03/31/17 1425: APTT 69 H 03/31/17 1055: Triglycerides Cancelled, Cholesterol Cancelled, LDL Cholesterol, Calc Cancelled, HDL Cholesterol Cancelled, Cholesterol/HDL Ratio Cancelled, TSH Cancelled 03/31/17 1055: Troponin I 0.03, Triglycerides 105, Cholesterol 203 H, LDL Cholesterol, Calc 126, HDL Cholesterol 56, Cholesterol/HDL Ratio 4, TSH 0.048 L 03/31/17 0400: Troponin I 0.04 03/31/17 0400: Anion Gap 12, Estimated GFR > 60, BUN/Creatinine Ratio 28.3 H, Phosphorus 4.2, Magnesium 3.0 H, TSH 0.090 L, Free T4 2.09, APTT > 120 *H, CBC w Diff NO MAN DIFF REQ, RBC 4.70, MCV 86.9, MCH 28.9, MCHC 33.3, RDW 14.2, MPV 8.5, Gran % 86.6 H, Lymphocytes % 12.0 L, Monocytes % 1.3 L, Eosinophils % 0.1, Basophils % 0, Absolute Granulocytes 4.7, Absolute Lymphocytes 0.6 L, Absolute Monocytes 0.1, Absolute Eosinophils 0, Absolute Basophils 0 03/31/17 010: Virus Culture Pending 03/30/172014: Anion Gap 17 H, Estimated GFR > 60, BUN/Creatinine Ratio 20.0, Glucose 209 H, Calcium 9.6, Magnesium 1.7, Total Bilirubin 0.6, Direct Bilirubin 0.3, AST 19, ALT 26, Alkaline Phosphatase 73, Troponin I < 0.01, Uwe-L-Lnolddpsfvp Pept 932 H, Total Protein 6.9, Albumin 4.3, PT 10.1, INR 0.96, D-Dimer High Sensitivty < 200, CBC w Diff NO MAN DIFF REQ, RBC 5.14, MCV 87.4, MCH 28.7, MCHC 32.9 L, RDW 13.9, MPV 8.6, Gran % 78.8 H, Lymphocytes % 15.6 L, Monocytes % 5.0, Eosinophils % 0.3, Basophils % 0.3, Absolute Granulocytes 10.7 H, Absolute Lymphocytes 2.1, Absolute Monocytes 0.7 H, Absolute Eosinophils 0, Absolute Basophils 0 Microbiology 03/31 101 NASOPHARYN: Influenza Virus A & B Rapid Smear - COMP INFLUENZA TYPE A Assessment/Plan Assessment: 76 year old female with a history of HTN, HL, COPD, paroxysmal atrial fibrillation, and lung CA s/p lobectomy 20 years ago with recurrence 3 years ago , currently in remission and on Opdivo, followed by Dr. Courtney who was admitted to our service on 03/30/17 after presenting to our ED secondary to worsening SOB, a nonproductive cough, and palpitations x 1 week. On initial presentation she also complained of nausea, dry heaving, and a painful anterior shoulder and anterior chest wall. She was found to be in atrial fibrillation with a rapid ventricular rate, which was converted with metoprolol and IV cardizem and tested positive for influenza A, suggesting atrial fibrillation is secondary to influenza infection causing COPD exacerbation. 1) Substernal chest pressure O/N Plan: CTPA insignificant for pulmonary embolism. Continue to monitor on telemetry for ACS 2) COPD exacerbation Plan: Positive rapid flu test. Currently treating with tamiflu 75mg BID. Continue nebs prn and prenisone 40mg qd 3) Atrial Fibrillation w/ RVR Plan: Currently rate controlled with Sotalol 40mg BID; on eliquis 5mg BID and ASA 81mg qd 4) HTN/HL a.m. BP 152/78. Considering it has been well controlled until last night, it could be a product of stress secondary to O/N event Plan: Continue hctz 25mg qd, consider titrating if consistently uncontrolled; ASA 81mg qd 5) Abnormal thyroid hormone levels- Euthyroid sick syndrome v hyperthyroidism v side effect of Opdivo Plan: Order U/S given slight enlargement of left lobe. Repeat hormone levels in a.m. as per endocrine. 6) Non-small cell lung cancer Plan: Currently in remission, oncology following. Opdivo on hold.
--- NOTE | 2017-04-02 08:29 | PN- Endocrinology ---
Assessment/Plan Assessment: This 76-year-old woman with history of lung cancer treated with up the Opdivo came to the hospital with an episode of atrial fibrillation and shortness of breath. Her thyroid tests were abnormal with a mildly suppressed TSH. Yesterday we repeated her thyroid tests. Her TSH was 0.036 with a free T4 of 1.37 and a total T3 of 0.92. We also checked the patient's antithyroglobulin and antithyroid peroxidase antibodies and these were negative. Her thyroid- stimulating immunoglobulin is pending. The patient had an episode of chest pain last night which radiated into her upper chest and jaw. She is scheduled for a CT angiogram of her chest to rule out pulmonary embolus. Plan: The patient should have a thyroid ultrasound today. Thyroid-stimulating immunoglobulin is pending. I would not recommend giving her any thyroid medication at this time until we complete the evaluation. Since the patient is to have IV contrast today as part of her evaluation for pulmonary embolus there may be further changes in her thyroid function. Therefore I would repeat her free T4 TSH and total T3 tomorrow. The patient fingerstick blood sugar last night was 251. She is on prednisone which can elevate her blood sugars. I would place her on Accu-Cheks 4 times a day before meals and at bedtime. If her sugars are elevated we should place her on low-dose NovoLog sliding scale insulin before meals only. Subjective Subjective: Feels better this morning Review of Systems Constitutional: Denies: chills, fever. Cardiovascular: Reports: chest pain (last night). Respiratory: Denies: cough, short of breath. Gastrointestinal: Denies: abdominal pain. Objective Last 24 Hrs of Vital Signs/I&O Vital Signs Date Time Temp Pulse Resp B/P B/P Pulse O2 O2 Flow FiO2 Mean Ox Delivery Rate 04/02 0657 98.0 65 18 152/78 95 Room Air 04/02 0339 95 Room Air 04/01 2141 Room Air 04/01 214 97.5 77 18 158/82 97 Room Air 04/01 2110 98 Room Air 02/ 1710 96 Room Air 04/01 1601 97.8 81 20 140/60 95 04/01 1134 98 Room Air Vital Signs Date Time Temp Pulse Resp B/P B/P Pulse O2 O2 Flow FiO2 Mean Ox Delivery Rate 04/02 0657 98.0 65 18 152/78 95 Room Air 02/ 0339 95 Room Air 02/ 2141 Room Air / 2141 97.5 77 18 158/82 97 Room Air 02/ 2110 98 Room Air 02/ 1710 96 Room Air 02/ 1601 97.8 81 20 140/60 95 02/ 1134 98 Room Air Physical Exam General Appearance: alert, awake, comfortable Head: normal appearance Neck: normal inspection Respiratory: normal breath sounds Cardiovascular: regular rate/rhythm Extremities: normal inspection Current Medications: Current Medications Sig/Yamila Start time Last Medication Dose Route Stop Time Status Admin Acetaminophen 650 MG Q6P PRN 03/31 0315 AC PO Albuterol Sulfate 3 ML EVERY 4 HRS/AWAKE 03/31 1200 AC 04/02 INH 0329 Apixaban 5 MG BID 03/31 1529 AC 04/01 PO 2138 Aspirin Buffered 81 MG DAILY 03/31 1000 AC 04/01 PO 0916 Docusate Sodium 100 MG DAILY 04/01 2100 AC 04/02 PO 0701 Fluticasone 2 SPRAY DAILY 04/02 1000 DC Propionate [place] Fluticasone 2 SPRAY DAILY 04/02 1000 AC Propionate [place] Guaifenesin 600 MG Q12 03/31 1000 AC 04/01 PO 2137 Hydrochlorothiazide 25 MG DAILY 03/31 1000 AC 04/01 PO 0916 Ipratropium [place] 2.5 ML EVERY 4 HRS/AWAKE 03/31 1200 AC 04/02 INH 0329 Lidocaine 1 PAT 0700 / 0700 AC 04/02 EXT 0701 Melatonin 5 MG AT BEDTIME 03/31 2200 AC 04/01 PO 2137 Methylprednisolone 40 MG BID 03/31 2200 DC 04/01 IV 0917 Nitroglycerin 0.4 MG Q 5 MINUTES X 3 DO.. 04/02 0215 AC 04/02 SL 0205 Omeprazole 20 MG DAILY AC 03/31 0700 AC 04/02 PO 0701 Oseltamivir Phosphate 75 MG BID 03/31 0400 AC 04/01 PO 04/04 0359 2137 Phosphate 250 MG 0700 04/02 0700 DC PO 04/02 0701 Potassium Chloride 10 MEQ 0700 04/02 0700 DC PO 04/02 0701 Prednisone 40 MG DAILY 04/02 1000 AC PO Simethicone 80 MG Q6P PRN 04/01 2100 AC 04/01 PO 2137 Sodium Chloride 2 SPRAY Q4P PRN 04/01 1100 AC 04/01 [place] 1632 Sotalol HCl 40 MG BID 03/31 1527 AC 04/01 PO 2137
--- NOTE | 2017-04-02 10:39 | CT SCAN REPORT ---
EXAMINATION: CT ANGIOGRAM OF THE CHEST WITH AND WITHOUT CONTRAST (CT PULMONARY ANGIOGRAM FOR PE) CLINICAL INFORMATION: Reason for Study:
Signs Symptoms: CP AND SOB
Presumptive Dx: PE
COMPARISON: CT chest most recent prior dated 04/02/[address] chest dated 03/07/2017 TECHNIQUE: Prior to contrast administration, noncontrast localization images were obtained. Subsequently, multidetector volumetric imaging was performed from the thoracic inlet to below the diaphragms following the administration of 95 mL Optiray 320 intravenous contrast. No contrast reaction reported. Sagittal, coronal, and MIP oblique sagittal reformatted images were obtained on the CT workstation, uploaded to PACS, and reviewed. Total exam dose-length product 232.26 mGy-cm. FINDINGS: QUALITY OF STUDY/CONTRAST BOLUS: Satisfactory PULMONARY ARTERIES: No central or segmental pulmonary emboli. THORACIC AORTA: Moderate atherosclerotic disease with intimal calcification of the aorta. Only partial enhancement of the aorta limiting the assessment. Contrast is seen only in the ascending aorta due to early phase of contrast. Atherosclerotic disease with intimal calcification coronary arteries. LUNG: Emphysematous changes compatible with centrilobular emphysema. Irregular opacity with mild bronchiectatic changes noted in the right upper lobe measuring approximately 3.6 x 2.7 x 4.5 cm similar to the exam performed earlier today.. Adjacent loculated appearing hydropneumothorax has also remained stable. Bronchopleural fistula cannot be entirely excluded. Subtle reticular change noted in the subpleural location superior segment left lower lobe (series 3 image 17) similar to the study dated 03/07/2017. Stable subpleural irregular opacity right upper lobe (series 3 image 21 measuring approximately 1 cm. Subpleural atelectatic changes and mild scarring noted in the right anterior base similar to the previous examinations. Pleural-based opacity medial aspect left lower lobe measuring approximately 1.9 x 2.3 x 2.5 cm has also remained stable. PLEURA: Stable pneumothorax with air-fluid level compatible with loculated hydropneumothorax adjacent to the bronchiectasis and irregular opacity suspicious for bronchopleural fistula.. MEDIASTINUM: Normal heart size. No pericardial effusion. No hilar or mediastinal lymphadenopathy. No evidence of septal bowing or right heart strain. CHEST WALL/AXILLA: No axillary or internal mammary lymphadenopathy. OSSEOUS STRUCTURES: Bony osteopenia. Mild decrease in the vertebral body height T11 vertebra has remained stable. No acute osseous abnormality. Degenerative changes noted at multiple levels. UPPER ABDOMEN: Unremarkable. No reflux of contrast into the hepatic veins to suggest elevated right heart pressures. IMPRESSION: 1. Stable nodular masslike parenchymal opacities. Stable loculated hydropneumothorax noted adjacent to right upper lobe irregular effusion with associated bronchiectasis. 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 Further assessment with PET/CT or biopsy of the larger right upper lobe and left lower lobe lesions recommended. 2. There is no definite CTA evidence of acute pulmonary embolism. 3. Moderate atherosclerotic disease of the aorta and the coronary arteries. 4. No evidence of mediastinal or hilar lymphadenopathy. VTE: negative
--- NOTE | 2017-04-02 13:06 | Cons- Pulmonary ---
General Information and HPI Consulting Request Date of Consult: 04/02/17 Requested By: med team History of Present Illness: Patient is a 76-year-old female with a PMH significant for lung cancer, COPD, HTN, paroxysmal A. fib not on anticoagulation, who presented complaining of an approximately one-week history of worsening shortness of breath. Within the last week she's also been wheezing and experiencing intermittent palpitations and a nonproductive cough. She endorses nausea and dry heaving today as well as mild pain of her anterior shoulders which extends across her anterior chest as well. she denies any, fever, chills. 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 ( Reported) Amoxicillin/Clavulanate Potass (Amox-Clav 875-125 MG Tablet) 875 MG-125 MG TABLET 1 TAB PO BID ABX (Reported) Aspirin (Ecotrin*) 81 MG TABLET.DR 1 TAB PO DAILY HEART/BLOOD (Reported) Carvedilol 25 MG TABLET 1 TAB PO BID HEART/BP (Reported) Diazepam 5 MG TABLET 0.5 TAB PO PRN AMXIETY (Reported) Fluticasone Propionate 50 MCG/ACTUATION SPRAY.SUSP 1 SPRAY [place] DAILY ALLERGIES (Reported) Hydrochlorothiazide 25 MG TABLET 1 TAB PO DAILY DIURETIC (Reported) Lidocaine (Lidoderm) 5 % ADH..PATCH 1 PAT TOP DAILY PAIN (Reported) may wear up to 12 hours Omeprazole 20 MG TABLET.DR 1 TAB PO DAILY GI (Reported) Prednisone 10 MG TABLET 1 TAB PO DAILY STEROID (Reported) Tiotropium Br/Olodaterol HCl (Stiolto Respimat Inhal [place]) 2.5 MCG-2.5 MCG/ ACTUATION MIST.INHAL 2 PUFF INH DAILY RESP. (Reported) Review of Systems Comments Patient denies fever or chills. Patient denies headaches or dizziness. Patient denies nausea vomiting diarrhea change in bowel habits. She is complaining of urinary frequency without dysuria or hematuria. Patient denies new bone aches or focal neurologic deficit Past History Travel History Traveled to [place] past 21 day No Medical History Cardiovascular: hypertension, hyperlipidemia, PAF Respiratory: COPD, Lung cancer Other Medical Hx: neuropathy Surgical History Surgical History: RLL resection numerous spinal surgeries Family History Relations & Conditions If Any: Relation not specified for: FH: CAD (coronary artery disease) Psychosocial History Where Do You Live? Home Who Do You Live With? self Primary Language: Haitian Smoking Status: Former Smoker (40/ Quit 20 yrs ago) ETOH Use: occasional use Illicit Drug Use: denies illicit drug use Exam & Diagnostic Data Last 24 Hrs of Vital Signs/I&O Vital Signs Date Time Temp Pulse Resp B/P B/P Pulse O2 O2 Flow FiO2 Mean Ox Delivery Rate 04/02 656 98.0 65 18 152/78 95 Room Air 04/02 0339 95 Room Air 04/01 2141 Room Air 04/01 2141 97.5 77 18 158/82 97 Room Air 04/01 2110 98 Room Air 04/01 1710 96 Room Air 04/01 1601 97.8 81 20 140/60 95 Last 48 Hrs of Labs/Bunny: Laboratory Tests 04/02/17 0200: Anion Gap 13, Estimated GFR > 60, BUN/Creatinine Ratio 34.0 H, Phosphorus 2.7, Troponin I < 0.01 04/01/17 1300: Thyroid Stim Immunoglob Pending 04/01/17 1137: TSH Cancelled, Free T4 Cancelled, Total T3 Cancelled, Thyroglobulin Antibody Cancelled, Thyroid Peroxidase Ab Cancelled 04/01/17 0630: Anion Gap 13, Estimated GFR > 60, BUN/Creatinine Ratio 33.3 H, Magnesium 2.1, TSH 0.036 L, Free T4 1.37, Total T3 0.92 L, CBC w Diff NO MAN DIFF REQ, RBC 4.37, MCV 87.2, MCH 29.0, MCHC 33.3, RDW 14.0, MPV 8.8, Gran % 83.8 H, Lymphocytes % 12.4 L, Monocytes % 3.7, Eosinophils % 0, Basophils % 0.1, Absolute Granulocytes 5.1, Absolute Lymphocytes 0.8 L, Absolute Monocytes 0.2, Absolute Eosinophils 0, Absolute Basophils 0, Thyroglobulin Antibody < 15, Thyroid Peroxidase Ab < 28 03/31/17 1425: APTT 69 H Assessment/Plan Impression/Plan: SIGNIFICANT DATA CTA of the chest reviewed She has pulmonary mass like opacities bilaterally with loculated hydropneumothorax adjacent to the right upper lobe with 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 Old CT scan from [place] not yet available. However this is in the pleural space is new since 03/07/2017 Complete blood work as noted TSH is low white count is not elevated hemoglobin 12.7 with no significant left shift d-dimer unremarkable and the viral influenza positive IMPRESSION This is a lady with known metastatic non-small cell lung cancer who is on opdivo , , new onset atrial fibrillation, now has Influenza infection Advanced malignancy with suggestion of a loculated (very small ) hydropneumothorax within the right upper lobe suggesting either cavitating mass versus a loculated hydropneumothorax. Could be a pleural parenchymal fistula but this needs to be evaluated in the future (seems less likely). No clinical evidence suggestive of active cavitating pneumonia, needs to be monitored longitudinally Atrial fibrillation not on anticoagulation Altered thyroid function tests with the autoimmune physiology and patient is on Namenda now therapy for lung cancer. RECOMMENDATION Reduce prednisone to 20 mg for 2 days and then to 10 Continue inhalers Flonase 2 puffs each nostril once a day We will watch her longitudinally to see whether this bronchopleural fistula-like physiology will increase in size. Unfortunately she does not seem to be a candidate for any surgery and she would need outpatient pulmonary function tests Will follow closely Consult Acknowledgment - Thank you for your consult request.
[2017-04-02 15:16] VITALS: BP 122/60
--- NOTE | 2017-04-02 17:20 | ULTRASOUND REPORT ---
US THYROID CLINICAL INFORMATION: Thyroid nodule.. COMPARISON: None available. TECHNIQUE: Linear transducer machuca-scale and color Doppler examination with attention to the region of the thyroid. FINDINGS: SIZE: Measurements of the thyroid lobes and nodules are given in sagittal, anteroposterior and transverse dimensions respectively. Right Thyroid Lobe: 5.0 x 1.9 x 1.4 cm, volume 7 mL. Left Thyroid Lobe: 3.9 x 2.1 x 1.6 cm, volume 6.9 mL. Isthmus: 0.2 cm in maximum AP dimension. PARENCHYMA: The gland echotexture is homogenous. Thyroid vascularity is normal. RIGHT THYROID LOBE: Within the upper pole of the right thyroid lobe there is a 0.6 x 0.4 x 0.5 cm nodule that is hypoechoic with smooth margins and that does not exhibit Doppler flow. Within the midpole of the right thyroid lobe there is a 0.4 x 0.3 x 0.4 cm hypoechoic nodule with smooth margins and no Doppler flow. ISTHMUS: No nodules. LEFT THYROID LOBE: Within the upper to midpole of the left thyroid lobe there is a 0.4 x 0.3 x 0.3 cm hypoechoic nodule with smooth margins and no Doppler flow. NODES: No lymphadenopathy is seen in the tissue surrounding the thyroid gland. IMPRESSION: There are a few subcentimeter nodules within the right thyroid lobe and there is a single subcentimeter nodule within the left thyroid lobe..
--- NOTE | 2017-04-02 20:00 | PN- Cardiology ---
Subjective Subjective: * Breathing is improved but not to baseline. Severe palpitations last evening. Objective Vital Signs and I&Os Vital Signs Date Time Temp Pulse Resp B/P B/P Pulse O2 O2 Flow FiO2 Mean Ox Delivery Rate 04/02 1600 Room Air 04/02 1600 96 Room Air 04/02 1516 98.3 79 20 122/60 95 Room Air 04/02 0657 98.0 65 18 152/78 95 Room Air 04/02 0339 95 Room Air 04/01 214 Room Air 04/01 2140 97.5 77 18 158/82 97 Room Air 04/01 2110 98 Room Air Intake & Output 04/02 1600 04/02 0800 04/02 0000 04/01 1600 04/01 0800 04/01 0000 Intake Total 400 420 120 120 Output Total 500 Balance -100 420 120 120 Intake, IV 20 Intake, Oral 400 400 120 120 Output, Urine 500 Physical Exam: General: WD/thin female in NAD; alert and oriented x 3 HEENT: NC/AT, PERRL, EOMI Neck: no JVD, no carotid bruit Heart: RRR w/o murmur Lungs: bilateral wheezing with decreased air movement ABdomen: soft, NT, +ve bowel sounds Extremities: no edema Assessment/Plan Assessment/Plan * Continue current dose of Sotolol to help maintain a sinus rhythm. I am not inclined to increase her beta dany due to active wheezing. This patient will have a propensity toward atrial fibrillation from elevated pulmonary pressues after her lobectomy for lung cancer. Continue Eliquis for stroke prophylaxis. * Patient is noted to be hypothyroid. Patient refused a thyroid biopsy. * This patient likely has myocardial ischemia. We will consider a pharmacologic stress test verses cardiac catheterization when more stable. * Continue therapy for URI Continue telemetry? Yes
[2017-04-02 22:11] VITALS: BP 146/78
--- NOTE | 2017-04-02 23:50 | ECHOCARDIOGRAM REPORT ---
WILFREDO GERARDO Age: 76 : 1940 Gender: F Exam Date: 04/02/2017 10:21 Exam Location: [address] Ht (in): 63 Wt (lb): 126 BSA: 1.60 BP: 152 / 78 Ordering Physician: Kathy Balbuena MD Referring Physician: Kathy Balbuena MD Technologist: Emanuel Bobby [facility] Room Number: 172-1 Indications: Chest Pain Rhythm: Sinus Technical Quality: good FINDINGS Left Ventricle Normal left ventricular size, wall thickness and systolic function with no obvious regional wall motion abnormalities. Normal left ventricular diastolic filling pattern for age. The ejection fraction is visually estimated at 70%. Right Ventricle The right ventricle is normal in size and function. Right Atrium The right atrium is normal in size. Left Atrium The left atrium is normal in size. The interatrial septum is intact. Mitral Valve The mitral valve is normal in structure and function. There is no mitral regurgitation. Aortic Valve Structurally normal aortic valve without significant sclerosis or stenosis. There is no aortic regurgitation. Tricuspid Valve The tricuspid valve is normal in structure and function. There is trace tricuspid regurgitation. Pulmonary artery systolic pressure is normal. Pulmonic Valve Structurally normal pulmonic valve. There is no pulmonic regurgitation. Pericardium Normal pericardium without effusion. No pleural effusion. Great Vessels Normal aortic root dimension. The aortic arch and great vessels are well seen and are normal. CONCLUSIONS 1. Normal EF of 70%. 2. Trace tricuspid regurgitation. Ronnell Laura M.D. (Electronically Signed) Final Date: 02 April 2017 23:50 MEASUREMENTS (Male / Female) Normal Values 2D ECHO LV Diastolic Diameter PLAX 3.3 cm 4.2 - 5.9 / 3.9 - 5.3 cm LV Systolic Diameter PLAX 2.3 cm 2.1 - 4.0 cm LV Fractional Shortening PLAX 30.3 % 25 - 46 % LV Ejection Fraction 2D Teich 58.9 % IVS Diastolic Thickness 1.1 cm LVPW Diastolic Thickness 1.0 cm LV Relative Wall Thickness 0.6 LVOT Diameter 1.7 cm Aortic Root Diameter 2.5 cm LA Systolic Diameter LX 3.1 cm 3.0 - 4.0 / 2.7 - 3.8 cm Ascending Aorta Diameter 2.6 cm DOPPLER AV Peak Velocity 93.7 cm/s AV Peak Gradient 3.5 mmHg AV Mean Velocity 65.6 cm/s AV Mean Gradient 2.0 mmHg AV Velocity Time Integral 20.7 cm LVOT Peak Velocity 51.1 cm/s LVOT Peak Gradient 1.0 mmHg LVOT Mean Velocity 34.1 cm/s LVOT Mean Gradient 1.0 mmHg LVOT Velocity Time Integral 11.9 cm LVOT Stroke Volume 27.0 cm AV Area Cont Eq vti 1.3 cm AV Area Cont Eq pk 1.2 cm MV Peak Velocity 125.0 cm/s MV Peak Gradient 6.3 mmHg MV Mean Velocity 59.3 cm/s MV Mean Gradient 2.0 mmHg Mitral E Point Velocity 77.0 cm/s Mitral A Point Velocity 54.8 cm/s Mitral E to A Ratio 1.4 MV PHT Velocity 125.0 cm/s MV Deceleration [place] 631.0 cm/s MV Pressure Half Time 59.4 ms MV Area PHT 3.7 cm MV Deceleration Time 327.0 ms TR Peak Velocity 296.0 cm/s TR Peak Gradient 35.0 mmHg Right Atrial Pressure 5.0 mmHg Pulmonary Artery Systolic Pressu 40.0 mmHg Right Ventricular Systolic Press 40.0 mmHg PV Peak Velocity 64.8 cm/s PV Peak Gradient 1.7 mmHg PV Mean Velocity 47.7 cm/s PV Mean Gradient 1.0 mmHg PV Velocity Time Integral 12.0 cm LV E' Lateral Velocity 4.8 cm/s Mitral E to LV E' Lateral Ratio 16.1 LV E' Septal Velocity 6.0 cm/s Mitral E to LV E' Septal Ratio 12.7
[2017-04-03 06:36] VITALS: BP 164/88
--- NOTE | 2017-04-03 06:51 | PN- Housestaff ---
Alf MANCINI,Annie 04/03/17 0651: Subjective Follow-up For: Atrial fibrillation, influenza, COPD Complaints: no complaints Tele-Events Since Last Visit: Normal sinus rhythm heart rate 70 Subjective: Patient was seen and examined at bedside. No overnight events. No complaints. She denies chest pain, chest pressure, fever, nausea, abdominal pain, shortness of breath, palpitation. Review of Systems Constitutional: Reports: no symptoms. Cardiovascular: Reports: no symptoms. Respiratory: Reports: no symptoms. Gastrointestinal: Reports: no symptoms. Genitourinary: Reports: no symptoms. Musculoskeletal: Reports: no symptoms. Objective Last 24 Hrs of Vital Signs/I&O Vital Signs Date Time Temp Pulse Resp B/P B/P Pulse O2 O2 Flow FiO2 Mean Ox Delivery Rate 04/03 1101 134/70 04/03 0823 98 Room Air Room Air 04/03 0636 98.3 73 18 164/88 97 Room Air 04/02 2211 97.8 73 18 146/78 97 Room Air 04/02 1600 Room Air 04/02 1600 96 Room Air 04/02 1516 98.3 79 20 122/60 95 Room Air Intake & Output 04/03 1600 04/03 0800 04/03 0000 Intake Total 110 450 Output Total 600 Balance 110 -150 Intake, IV 10 Intake, Oral 100 450 Number 0 Bowel Movements Output, Urine 600 Physical Exam General Appearance: Alert, Oriented X3, Cooperative, No Acute Distress Skin: No Rashes, No Breakdown Cardiovascular: Regular Rate, Normal S1, Normal S2, No Murmurs Lungs: Clear to Auscultation Abdomen: Soft, No Tenderness, No Hepatospenomegaly Neurological: Normal Speech, Strength at 5/5 X4 Ext, Normal Tone Extremities: No Cyanosis, No Edema Current Medications: Current Medications Sig/Yamila Start time Last Medication Dose Route Stop Time Status Admin Acetaminophen 650 MG Q6P PRN 03/31 0315 AC PO Albuterol Sulfate 3 ML TID 04/03 1000 AC 04/03 INH 1235 Albuterol Sulfate 3 ML EVERY 4 HRS/AWAKE 03/31 1200 DC 04/02 INH 2125 Apixaban 5 MG BID 03/31 1529 AC 04/03 PO 0927 Aspirin Buffered 81 MG DAILY 03/31 1000 AC 04/03 PO 0927 Docusate Sodium 100 MG DAILY 04/01 2100 AC 04/03 PO 0927 Fluticasone 2 SPRAY DAILY 04/02 1000 AC 04/03 Propionate [place] 0928 Guaifenesin 600 MG Q12 03/31 1000 AC 04/03 PO 0927 Hydrochlorothiazide 25 MG DAILY 03/31 1000 AC 04/03 PO 0927 Ipratropium [place] 2.5 ML TID 04/03 1000 AC 04/03 INH 1235 Ipratropium [place] 2.5 ML EVERY 4 HRS/AWAKE 03/31 1200 DC 04/02 INH 2125 Lidocaine 1 PAT 0700 03/31 0700 AC 04/02 EXT 0701 Melatonin 5 MG AT BEDTIME 03/31 2200 AC 04/01 PO 2137 Nitroglycerin 0.4 MG Q 5 MINUTES X 3 DO.. 04/02 0215 AC 04/02 SL 0205 Omeprazole 20 MG DAILY AC 03/31 0700 AC 04/03 PO 0628 Oseltamivir Phosphate 75 MG BID 03/31 0400 AC 04/03 PO 04/04 0359 0927 Polyethylene Glycol 17 GM ONCE ONE 04/03 0030 DC 04/03 PO 04/03 0031 0648 Prednisone 10 MG DAILY 04/04 1000 AC PO 04/05 1000 Prednisone 20 MG DAILY 04/03 1000 DC 04/03 PO 04/03 1000 1000 Simethicone 80 MG Q6P PRN 04/01 2100 AC 04/01 PO 2137 Sodium Chloride 2 SPRAY Q4P PRN 04/01 1100 AC 04/01 [place] 1632 Sotalol HCl 40 MG BID 03/31 1527 AC 04/03 PO 0926 Last 24 Hrs of Lab/Bunny Results Last 24 Hrs of Labs/Mics: Laboratory Tests 04/03/17 0800: Anion Gap 12, Estimated GFR > 60, BUN/Creatinine Ratio 24.3 04/03/17 0715: TSH 0.381, Free T4 1.21, Total T3 0.86 L, CBC w Diff NO MAN DIFF REQ, RBC 4.65, MCV 87.1, MCH 29.0, MCHC 33.3, RDW 13.9, MPV 8.3, Gran % 66.4, Lymphocytes % 26.2, Monocytes % 6.8, Eosinophils % 0.1, Basophils % 0.5, Absolute Granulocytes 4.8, Absolute Lymphocytes 1.9, Absolute Monocytes 0.5, Absolute Eosinophils 0, Absolute Basophils 0 Assessment/Plan Assessment: 76-year-old female with past medical history of hypertension, COPD, remote history of paroxysmal A. fib, who presents with a one-week history of worsening shortness of breath and nonproductive cough. CT 04/01/17 Stable lung masses. The largest lesion is in the right upper lobe. 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 The air in the pleural space is new since exam of March 07, 2017. Stable left upper lobe and left lower lobe and right lower lobe lesions . Lesion are suspicious for neoplasm. Assessment and plan 1. Paroxysmal atrial fibrillation-possibly due to influenza. Patient converted back to sinus rhythm after starting Cardizem drip. Patient is on Eliquis 5 mg 2. Influenza 3. Hypertension 4. History of COPD 5. History of lung cancer in the right lung on Opdivocurrently in remission 6. Low TSH Plan Continue telemetry unit for close monitoring Continue Eliquis 5 mg for atrial fibrillation. Continue Tamiflu 75 mg twice daily for 2 more days Continue by mouth prednisone 20 mg today and 10 mg for next 2 days. Patient is advised to continue her prednisone 5 mg daily from 04/06/2017. TRC nebs/Oxygen as needed Mucinex twice daily, Continue Flonase Patient had a TSH of 0.036 level. Endocrinology was consulted. This can be secondary to nivolumab's or euthyroid sick syndrome/hyperthyroidism. Patient had a thyroid ultrasound which showed 2 small nodules in both right and left side. Endocrinology followed her today suggested to follow her as outpatient. DVT PPx: on eliquis Diet: heart healthy Code: full code Plan to discharge home and follow-up with pulmonology, Dr. Silvestre, Jose Almanza MD as outpatient. Problem List: 1. COPD exacerbation 2. Lung cancer 3. New onset atrial fibrillation Pain Ratin Pain Location: NONE Pain Goal: Remain pain free Pain Plan: TYLENOL Tomorrow's Labs & Rationales: NONE Bradley Andrews MD 04/03/17 1213: Attending MD Review Statement Attending Statement Attending MD Statement: examined this patient, discuss w/resident/PA/ALLIGATOR HUNTER, agreed w/resident/PA/ALLIGATOR HUNTER, reviewed EMR data (avail), discussed with nursing, discussed with case mgmt, amended to note Attending Assessment/Plan: Patient seen and examined. Resting comfortably not in any acute distress. No issues overnight. Complains of mild sinus congestion this morning. Denies shortness of breath. Denies chest pain. She is afebrile hemodynamically stable. On examination she has adequate entry bilaterally with mild rhonchi. He discussed with the pulmonology service. She is medically stable to be discharged today. She will complete her course of Tamiflu and will be weaned down to her home dose of prednisone. She will follow-up with the pulmonology service as an outpatient as well as her oncology service. She will also follow- up with the cardiology service as an outpatient for further ischemic workup.
--- NOTE | 2017-04-03 07:29 | PN- Student ---
Subjective Subjective: 76 year old female with a history of HTN, HL, COPD, paroxysmal atrial fibrillation, and lung CA s/p lobectomy 20 years ago with recurrence 3 years ago , currently in remission and on Opdivo, followed by Dr. Courtney who was admitted to our service on 03/30/17 after presenting to our ED secondary to worsening SOB, a nonproductive cough, and palpitations x 1 week. On initial presentation she also complained of nausea, dry heaving, and a painful anterior shoulder and anterior chest wall. She was found to be in atrial fibrillation with a rapid ventricular rate, which was converted with metoprolol and IV cardizem. Overnight , the patient complained of 8/10 substernal chest pressure, radiating to her jaw , and anxiety. She was found to be in NSR, with a BP 182/98, HR 79, and O2 95 RA. Sublingual nitroglycerin provided immediate relief and an EKG, toponin levels, and CTPA with contrast was ordered. Objective Objective: CONSULTS: Pulmonology: We will watch her longitudinally to see whether this bronchopleural fistula-like physiology will increase in size. 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 Consider stress versus cath once patient is stabilized. [04/02/17] Continue current dose of Sotolol to help maintain a sinus rhythm. Do not increase her beta dany due to active wheezing. Recommendation: Chronic anticoagulation for stroke prevention (Eliquix 5mg BID) ; Continue URI tx Endocrinology: [04/01/17] TSH 0.04, fT4 2.09; Left lobe of the thryoid slightly enlarged, consider U/S; Random glucose 209 in ED, consider rechecking sugars [04/02/17] TSH was 0.036 with a free T4 of 1.37 and a total T3 of 0.92. Antithyroglobulin and antithyroid peroxidase antibodies and these were negative. Thyroid-stimulating immunoglobulin is pending. CTPA w/ contrast will likely influence thyroid levels. Recommendation: Hold off on Rx thyroid medications; Order U/S; recheck thyroid hormones tomorrow. Conclusion: Sick thyroid syndrome versus milder hyperthyroidism versus side effect of Opdivo IMAGING: [04/02/17] U/S thyroid: There are a few subcentimeter nodules within the right thyroid lobe and there is a single subcentimeter nodule within the left thyroid lobe.. [04/02/17] ECHO: 1. Normal EF of 70%. 2. Trace tricuspid regurgitation. [04/02/17] CTA chest: 1. Stable nodular masslike parenchymal opacities. Stable loculated hydropneumothorax noted adjacent to right upper lobe irregular effusion with associated bronchiectasis. 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 Further assessment with PET/CT or biopsy of the larger right upper lobe and left lower lobe lesions recommended. 2. There is no definite CTA evidence of acute pulmonary embolism. 3. Moderate atherosclerotic disease of the aorta and the coronary arteries. 4. No evidence of mediastinal or hilar lymphadenopathy. [04/02/17] CT chest: Stable lung masses. The largest lesion is in the right upper lobe. 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 The air in the pleural space is new since exam of March 07, 2017. Stable left upper lobe and left lower lobe and right lower lobe lesions . Lesion are suspicious for neoplasm. [03/30/17] CXR: Opacity in right upper lobe corresponds to the area of mass seen on prior CT. Lungs otherwise clear. [04/01/17] EKG: Irregulary irregular rhythm suggestive of atrial fibrillation. Romero waves noted in lead II suggestive of hypothermia. PHYSICAL EXAMINATION Vitals: Stable. HR 65, RR 18, BP 152/78, O2 95 RA General: AOx3, expressing irritation with all of the consults and no coherent plan. However, she was polite and cooperative. Cardiovascular: RR, no murmurs, rubs, or gallops appreciated. Pulmonary: Diminished breath sounds over both lung sanchez on the right. Mild expiratory wheezes noted over all lung sanchez on the left. GI: Soft, nontender Extremities: DP/PT pulses 2+ b/l. No edema. Results Results: Laboratory Tests 04/03/17 0715: TSH Pending, Free T4 Pending, Total T3 Pending, CBC w Diff Pending, WBC Pending, RBC Pending, Hgb Pending, Hct Pending, MCV Pending, MCH Pending, MCHC Pending, RDW Pending, Plt Count Pending, MPV Pending 04/02/17 0200: Anion Gap 13, Estimated GFR > 60, BUN/Creatinine Ratio 34.0 H, Phosphorus 2.7, Troponin I < 0.01 04/01/17 1300: Thyroid Stim Immunoglob Pending 04/01/17 1137: TSH Cancelled, Free T4 Cancelled, Total T3 Cancelled, Thyroglobulin Antibody Cancelled, Thyroid Peroxidase Ab Cancelled 04/01/17 0630: Anion Gap 13, Estimated GFR > 60, BUN/Creatinine Ratio 33.3 H, Magnesium 2.1, TSH 0.036 L, Free T4 1.37, Total T3 0.92 L, CBC w Diff NO MAN DIFF REQ, RBC 4.37, MCV 87.2, MCH 29.0, MCHC 33.3, RDW 14.0, MPV 8.8, Gran % 83.8 H, Lymphocytes % 12.4 L, Monocytes % 3.7, Eosinophils % 0, Basophils % 0.1, Absolute Granulocytes 5.1, Absolute Lymphocytes 0.8 L, Absolute Monocytes 0.2, Absolute Eosinophils 0, Absolute Basophils 0, Thyroglobulin Antibody < 15, Thyroid Peroxidase Ab < 28 03/31/17 1425: APTT 69 H 03/31/17 1055: Triglycerides Cancelled, Cholesterol Cancelled, LDL Cholesterol, Calc Cancelled, HDL Cholesterol Cancelled, Cholesterol/HDL Ratio Cancelled, TSH Cancelled 03/31/17 1055: Troponin I 0.03, Triglycerides 105, Cholesterol 203 H, LDL Cholesterol, Calc 126, HDL Cholesterol 56, Cholesterol/HDL Ratio 4, TSH 0.048 L Assessment/Plan Assessment: 76 year old female with a history of HTN, HL, COPD, paroxysmal atrial fibrillation, and lung CA s/p lobectomy 20 years ago with recurrence 3 years ago , currently in remission and on Opdivo, followed by Dr. Courtney who was admitted to our service on 03/30/17 after presenting to our ED secondary to worsening SOB, a nonproductive cough, and palpitations x 1 week. On initial presentation she also complained of nausea, dry heaving, and a painful anterior shoulder and anterior chest wall. She was found to be in atrial fibrillation with a rapid ventricular rate, which was converted with metoprolol and IV cardizem and tested positive for influenza A, suggesting atrial fibrillation is secondary to influenza infection causing COPD exacerbation. [04/02/17] U/S thyroid: There are a few subcentimeter nodules within the right thyroid lobe and there is a single subcentimeter nodule within the left thyroid lobe.. [04/02/17] ECHO: 1. Normal EF of 70%. 2. Trace tricuspid regurgitation. The patient fingerstick blood sugar last night was 251. She is on prednisone which can elevate her blood sugars. I would place her on Accu-Cheks 4 times a day before meals and at bedtime. If her sugars are elevated we should place her on low-dose NovoLog sliding scale insulin before meals only. 1) Substernal chest pressure O/N Plan: CTPA insignificant for pulmonary embolism. Continue to monitor on telemetry for ACS 2) COPD exacerbation Plan: Positive rapid flu test. Currently treating with tamiflu 75mg BID. Continue nebs prn and prenisone 40mg qd 3) Atrial Fibrillation w/ RVR Plan: Currently rate controlled with Sotalol 40mg BID; on eliquis 5mg BID and ASA 81mg qd 4) HTN/HL a.m. BP 152/78. Considering it has been well controlled until last night, it could be a product of stress secondary to O/N event Plan: Continue hctz 25mg qd, consider titrating if consistently uncontrolled; ASA 81mg qd 5) Abnormal thyroid hormone levels- Euthyroid sick syndrome v hyperthyroidism v side effect of Opdivo Plan: Order U/S given slight enlargement of left lobe. Repeat hormone levels in a.m. as per endocrine. 6) Hyperglycemia - [04/02] 103, 104, 194, 182; [04/03] 127 Plan: Glucose is normal between meals. Continue ACCUChecks q4h. Consider SS Novalog while inpatient if trending high 7) Non-small cell lung cancer Plan: Currently in remission, oncology following. Opdivo on hold.
[2017-04-03 07:49] LABS: ABSOLUTE BASOPHIL COUNT 0 /CUMM (0.0-0.2); ABSOLUTE EOSINOPHIL COUNT 0 /CUMM (0.0-0.7); ABSOLUTE GRANULOCYTE CT 4.8 /CUMM (1.4-6.5); ABSOLUTE LYMPH COUNT 1.9 /CUMM (1.2-3.4); ABSOLUTE MONOCYTE COUNT 0.5 /CUMM (0.10-0.60); BASOPHIL % 0.5 % (0.0-2.0); EOSINOPHIL % 0.1 % (0-5); GRANULOCYTE % 66.4 % (42.2-75.2); HEMATOCRIT 40.5 % (37-47); MEAN CORPUSCULAR HGB CONC 33.3 G/DL (33.0-37.0); MEAN CORPUSCULAR VOLUME 87.1 FL (81.0-99.0); MEAN PLATELET VOLUME 8.3 FL (7.4-10.4); PLATELET COUNT 253 /CUMM (130-400); RBC DISTRIBUTION WIDTH 13.9 % (11.5-14.5); RED BLOOD CELL CT 4.65 /CUMM (4.20-5.40); WHITE BLOOD CELL COUNT 7.2 /CUMM (4.8-10.8)
--- NOTE | 2017-04-03 08:04 | PN- Endocrinology ---
Assessment/Plan Assessment: This 76-year-old woman with history of lung cancer treated with up the Opdivo came to the hospital with an episode of atrial fibrillation and shortness of breath. Her thyroid tests were abnormal with a mildly suppressed TSH. Yesterday we repeated her thyroid tests. Her TSH was 0.036 with a free T4 of 1.37 and a total T3 of 0.92. We also checked the patient's antithyroglobulin and antithyroid peroxidase antibodies and these were negative. Her thyroid- stimulating immunoglobulin is pending. Ultrasound of the thyroid shows multiple tiny nodules that do not have suspicious characteristics. Thyroid-stimulating immunoglobulin level was still pending. Patient CT angiogram was negative. There may be a bronchopulmonary fistula visualized. Plan: Suggest that we should repeat the patient's thyroid function tests today as the patient received a high iodine load yesterday. In addition we should recheck her creatinine post contrast. If the patient goes home today we can follow up with her as an outpatient with regard to her thyroid disease. Subjective Subjective: Feels improved Review of Systems Constitutional: Denies: chills, fever. Cardiovascular: Denies: chest pain. Gastrointestinal: Denies: abdominal pain, vomiting. Objective Last 24 Hrs of Vital Signs/I&O Vital Signs Date Time Temp Pulse Resp B/P B/P Pulse O2 O2 Flow FiO2 Mean Ox Delivery Rate 04/03 635 98.3 73 18 164/88 97 Room Air 04/02 2210 97.8 73 18 146/78 97 Room Air 04/02 1600 Room Air 04/02 1599 96 Room Air 04/02 1516 98.3 79 20 122/60 95 Room Air Intake & Output 04/03 0800 04/03 0000 Intake Total 110 450 Output Total 600 Balance 110 -150 Intake, IV 10 Intake, Oral 100 450 Number 0 Bowel Movements Output, Urine 600 Vital Signs Date Time Temp Pulse Resp B/P B/P Pulse O2 O2 Flow FiO2 Mean Ox Delivery Rate 04/03 0536 98.3 73 18 164/88 97 Room Air 04/02 2210 97.8 73 18 146/78 97 Room Air / 1600 Room Air 04/02 1600 96 Room Air 04/02 1516 98.3 79 20 122/60 95 Room Air Intake & Output 04/03 1600 04/03 0800 02/ 0000 Intake Total 110 450 Output Total 600 Balance 110 -150 Intake, IV 10 Intake, Oral 100 450 Number 0 Bowel Movements Output, Urine 600 Physical Exam General Appearance: alert, awake Head: normal appearance Neck: normal inspection Extremities: normal inspection Current Medications: Current Medications Sig/Yamila Start time Last Medication Dose Route Stop Time Status Admin Acetaminophen 650 MG Q6P PRN 03/31 0315 AC PO Albuterol Sulfate 3 ML TID 04/03 1000 AC INH Albuterol Sulfate 3 ML EVERY 4 HRS/AWAKE 03/31 1200 DC 04/02 INH 2125 Apixaban 5 MG BID 03/31 1529 AC 04/02 PO 2123 Aspirin Buffered 81 MG DAILY 03/31 1000 AC 04/02 PO 1055 Docusate Sodium 100 MG DAILY 04/01 2100 AC 04/02 PO 0701 Fluticasone 2 SPRAY DAILY 04/02 1000 AC 04/02 Propionate [place] 1055 Guaifenesin 600 MG Q12 03/31 1000 AC 04/02 PO 2124 Hydrochlorothiazide 25 MG DAILY / 1000 AC 04/02 PO 1055 Ipratropium [place] 2.5 ML TID 04/03 1000 AC INH Ipratropium [place] 2.5 ML EVERY 4 HRS/AWAKE 03/31 1200 DC 04/02 INH 2125 Lidocaine 1 PAT 0700 / 0700 AC 04/02 EXT 0701 Melatonin 5 MG AT BEDTIME 03/31 2200 AC 04/01 PO 2137 Nitroglycerin 0.4 MG Q 5 MINUTES X 3 DO.. 04/02 0215 AC 04/02 SL 0205 Omeprazole 20 MG DAILY AC 03/31 0700 AC 04/03 PO 0628 Oseltamivir Phosphate 75 MG BID 03/31 0400 AC 04/02 PO 04/04 0359 2124 Polyethylene Glycol 17 GM ONCE ONE 04/03 0030 DC 04/03 PO 04/03 0031 0648 Prednisone 10 MG DAILY 04/04 1000 AC PO 04/05 1000 Prednisone 20 MG DAILY 04/03 1000 AC PO 04/03 1000 Prednisone 40 MG DAILY 04/02 1000 DC 04/02 PO 1054 Simethicone 80 MG Q6P PRN 04/01 2100 AC 04/01 PO 2137 Sodium Chloride 2 SPRAY Q4P PRN 04/01 1100 AC 04/01 [place] 1632 Sotalol HCl 40 MG BID 03/31 1527 AC 04/02 PO 2124 Results Pertinent Lab/Bunny Results: Laboratory Tests 04/03 714 Chemistry TSH Pending Free T4 Pending Total T3 Pending Hematology CBC w Diff NO MAN DIFF REQ WBC (4.8 - 10.8 /CUMM) 7.2 RBC (4.20 - 5.40 /CUMM) 4.65 Hgb (12.0 - 16.0 G/DL) 13.5 Hct (37 - 47 %) 40.5 MCV (81.0 - 99.0 FL) 87.1 MCH (27.0 - 31.0 PG) 29.0 MCHC (33.0 - 37.0 G/DL) 33.3 RDW (11.5 - 14.5 %) 13.9 Plt Count (130 - 400 /CUMM) 253 MPV (7.4 - 10.4 FL) 8.3 Gran % (42.2 - 75.2 %) 66.4 Lymphocytes % (20.5 - 51.1 %) 26.2 Monocytes % (1.7 - 9.3 %) 6.8 Eosinophils % (0 - 5 %) 0.1 Basophils % (0.0 - 2.0 %) 0.5 Absolute Granulocytes (1.4 - 6.5 /CUMM) 4.8 Absolute Lymphocytes (1.2 - 3.4 /CUMM) 1.9 Absolute Monocytes (0.10 - 0.60 /CUMM) 0.5 Absolute Eosinophils (0.0 - 0.7 /CUMM) 0 Absolute Basophils (0.0 - 0.2 /CUMM) 0
--- NOTE | 2017-04-03 09:34 | PN- Pulmonary ---
Subjective HPI/Critical Care Issues: Feels ok still has nasal stuffiness Objective Current Medications: Current Medications Sig/Yamila Start time Last Medication Dose Route Stop Time Status Admin Acetaminophen 650 MG Q6P PRN 03/31 0315 AC PO Albuterol Sulfate 3 ML TID 04/03 1000 AC 04/03 INH 0817 Albuterol Sulfate 3 ML EVERY 4 HRS/AWAKE 03/31 1200 DC 02 INH 2125 Apixaban 5 MG BID 03/31 1529 AC 04/03 PO 0927 Aspirin Buffered 81 MG DAILY 03/31 1000 AC 04/03 PO 0927 Docusate Sodium 100 MG DAILY 04/01 2100 AC 04/03 PO 0927 Fluticasone 2 SPRAY DAILY 04/02 1000 AC 04/03 Propionate [place] 0928 Guaifenesin 600 MG Q12 03/31 1000 AC 04/03 PO 0927 Hydrochlorothiazide 25 MG DAILY 03/31 1000 AC 04/03 PO 0927 Ipratropium [place] 2.5 ML TID 04/03 1000 AC 04/03 INH 0817 Ipratropium [place] 2.5 ML EVERY 4 HRS/AWAKE 03/31 1200 DC 04/02 INH 2125 Lidocaine 1 PAT 0700 03/31 0700 AC 04/02 EXT 0701 Melatonin 5 MG AT BEDTIME 03/31 2200 AC 04/01 PO 2137 Nitroglycerin 0.4 MG Q 5 MINUTES X 3 DO.. 04/02 0215 AC 04/02 SL 0205 Omeprazole 20 MG DAILY AC 03/31 0700 AC 04/03 PO 0628 Oseltamivir Phosphate 75 MG BID 03/31 0400 AC 04/03 PO 04/04 0359 0927 Polyethylene Glycol 17 GM ONCE ONE 04/03 0030 DC 04/03 PO 04/03 0031 0648 Prednisone 10 MG DAILY 04/04 1000 AC PO 04/05 1000 Prednisone 20 MG DAILY 04/03 1000 AC PO 04/03 1000 Prednisone 40 MG DAILY 04/02 1000 DC 04/02 PO 1054 Simethicone 80 MG Q6P PRN 04/01 2100 AC 04/01 PO 2137 Sodium Chloride 2 SPRAY Q4P PRN 04/01 1100 AC 04/01 [place] 1632 Sotalol HCl 40 MG BID 03/31 1527 AC 04/03 PO 0926 Vital Signs & I&O Last 24 Hrs of Vitals and I&O: Vital Signs Date Time Temp Pulse Resp B/P B/P Pulse O2 O2 Flow FiO2 Mean Ox Delivery Rate 04/03 0823 98 Room Air Room Air 04/03 0636 98.3 73 18 164/88 97 Room Air 04/02 2211 97.8 73 18 146/78 97 Room Air 04/02 1600 Room Air 04/02 1600 96 Room Air 04/02 1516 98.3 79 20 122/60 95 Room Air Intake & Output 04/03 1600 04/03 0800 02 0000 Intake Total 110 450 Output Total 600 Balance 110 -150 Intake, IV 10 Intake, Oral 100 450 Number 0 Bowel Movements Output, Urine 600 Impression/Plan Impression/Plan Impression/Plan: SIGNIFICANT DATA CTA of the chest reviewed She has pulmonary mass like opacities bilaterally with loculated hydropneumothorax adjacent to the right upper lobe with 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 Old CT scan from [place] not yet available. However this is in the pleural space is new since 03/07/2017 Complete blood work as noted TSH is low white count is not elevated hemoglobin 12.7 with no significant left shift d-dimer unremarkable and the viral influenza positive IMPRESSION This is a lady with known metastatic non-small cell lung cancer who is on opdivo , , new onset atrial fibrillation, now has * Influenza infection * Advanced malignancy with suggestion of a loculated (very small ) hydropneumothorax within the right upper lobe suggesting either cavitating mass versus a loculated hydropneumothorax. Could be a pleural parenchymal fistula but this needs to be evaluated in the future (seems less likely). No clinical evidence suggestive of active cavitating pneumonia, needs to be monitored longitudinally * Atrial fibrillation * Altered thyroid function tests with the autoimmune physiology and patient is on Namenda now therapy for lung cancer. RECOMMENDATION Reduce prednisone to 20 mg for 2 days and then to 10 and dc Continue inhalers Flonase 2 puffs each nostril once a day We will watch her longitudinally to see whether this bronchopleural fistula-like physiology will increase in size. Unfortunately she does not seem to be a candidate for any surgery and she would need outpatient pulmonary function tests Will follow closely
--- NOTE | 2017-04-03 09:58 | Patient Discharge Instructions ---
Discharge Instructions General Discharge Information You were seen/treated for: Influenza, atrial fibrillation Watch for these problems: In case of chest pain, chest pressure, nausea, vomiting, shortness of breath please go to the nearest emergency room Special Instructions: Please follow-up with your primary care provider within 1-2 weeks of discharge Please follow-up with golf club assembler as outpatient within 1-2 weeks of discharge. Please follow-up with Dr. Silvestre as outpatient within 1-2 weeks of discharge. Please follow-up with the line installer trolley and schedule your stress test as outpatient. Diet Continue normal diet: No Recommended Diet: Heart Healthy Activity Full Activity/No Limits: No Activity Self Limited: Yes Acute Coronary Syndrome Inclusion Criteria At DC or during hospital stay patient has or had the following: ACS DIAGNOSIS No Discharge Core Measures Meds if any: Prescribed or Continued at Discharge Meds if any: NOT Prescribed or Continued at Discharge Congestive Heart Failure Inclusion Criteria At DC or during hospital stay patient has or had the following: CHF DIAGNOSIS No Discharge Core Measures Meds if any: Prescribed or Continued at Discharge Meds if any: NOT Prescribed or Continued at Discharge Cerebrovascular accident Inclusion Criteria At DC or during hospital stay patient has or had the following: CVA/TIA Diagnosis No Discharge Core Measures Meds if any: Prescribed or Continued at Discharge Meds if any: NOT Prescribed or Continued at Discharge Venous thromboembolism Inclusion Criteria VTE Diagnosis No VTE Type NONE VTE Confirmed by (Test) NONE Discharge Core Measures - Per Current guidelines, there needs to be overlap - treatment for the first 5 days of Warfarin therapy. - If discharged on Warfarin prior to 5 days of - overlap therapy, the patient will need to be - assessed for post discharge needs including - *Post discharge parental anticoagulation - *Warfarin and/or parental anticoagulation education - *Follow up date to check INR post discharge At least 5 days overlap therapy as Inpatient No Meds if any: Prescribed or Continued at Discharge Note: Overlap Therapy is Warfarin and Anticoagulant Meds if any: NOT Prescribed or Continued at Discharge
[2017-04-03] MEDS ORDERED: TAMIFLU75 M1 PO ×3 (10:01→11:16)
[2017-04-03] MEDS ORDERED: PREDNISONE10 M2 PO (10:01)
[2017-04-03] MEDS ORDERED: ELIQUIS5 M1 PO ×2 (10:24→11:16)
[2017-04-03] MEDS ORDERED: BETAPACE80 MG PO ×2 (10:24→11:16)
[2017-04-03 11:01] VITALS: BP 134/70
[2017-04-03] MEDS ORDERED: PREDNISONE5 M1 PO ×3 (11:11→11:16)
--- NOTE | 2017-04-03 11:37 | Discharge Summary ---
Visit Information Visit Dates Admission Date: 03/30/17 Discharge Date: 04/03/17 Hospital Course Course Attending Physician: Bradley Andrews MD Primary Care Physician: Patient Has No Primary Care Dr Hospital Course: 76-year-old female with a PMH significant for lung cancer on chemotherapy, COPD, HTN, paroxysmal A. fib not on anticoagulation, who presented complaining of an approximately one-week history of worsening shortness of breath. For one week she's also been wheezing and experiencing intermittent palpitations and a nonproductive cough. She endorsed nausea and dry heaving as well as mild pain of her anterior shoulders which extends across her anterior chest as well. she denied any, fever, chills. On a previous hospital admission several years ago for pneumonia she had paroxysmal atrial fibrillation which reverted back to normal sinus rhythm she reports followed up with a teacher of the sight impaired and is not currently on anticoagulation. Patient used to live in [place], recently moved to [place] this December 2016. Hospital course Patient upon admission had paroxetine atrial fibrillation which converted to sinus rhythm after starting Cardizem drip. She was started on IV heparin initially and changed to Eliquis 5 mg twice a day. She was also positive for influenza A and started on Tamiflu 75 mg twice a day for 5 days. She was seen by oncologist Dr. Silvestre wanted to rule out pulmonary embolism in view of her shortness of breath and the same was negative. By CTA. During the hospital course patient had a rapid response for tachycardia and difficulty in breathing. 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 She was followed by pulmonology. [facility] Assistant wanted to watch the bronchopleural fistula longitudinally for further increase in any size. She was also followed by teacher of the sight impaired in view of atrial fibrillation who suggested to continue Eliquis and she needs further workup as outpatient. During the admission patient had low TSH of 0.036 and hence a thyroid ultrasound was ordered which showed small nodules both on right and left lobe of thyroid. This can be secondary due to her chemotherapeutic agent opdivo. She will follow Jose Almanza MD as outpatient. Allergies: Coded Allergies: hydromorphone (From DILAUDID) (Severe, SEIZURE 03/30/17) codeine (Intermediate, SWELLINGS 03/30/17) propoxyphene (From DARVON) (SWELLING 03/30/17) Pertinent Lab Results: Chest x-ray 03/30/17 Opacity in right upper lobe corresponds to the area of mass seen on prior CT Lungs otherwise clear. Chest CT 04/02/2017 IMPRESSION: Stable lung masses. The largest lesion is in the right upper lobe. 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 The air in the pleural space is new since exam of March 07, 2017. Stable left upper lobe and left lower lobe and right lower lobe lesions . Lesion are suspicious for neoplasm. CTA 04/02/2017 1. Stable nodular masslike parenchymal opacities. Stable loculated hydropneumothorax noted adjacent to right upper lobe irregular effusion with associated bronchiectasis. 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 Further assessment with PET/CT or biopsy of the larger right upper lobe and left lower lobe lesions recommended. 2. There is no definite CTA evidence of acute pulmonary embolism. 3. Moderate atherosclerotic disease of the aorta and the coronary arteries. 4. No evidence of mediastinal or hilar lymphadenopathy. Echocardiogram 04/02/2017 CONCLUSIONS 1. Normal EF of 70%. 2. Trace tricuspid regurgitation Thyroid ultrasound 04/02/2017 IMPRESSION: There are a few subcentimeter nodules within the right thyroid lobe and there is a single subcentimeter nodule within the left thyroid lobe Disposition Summary Disposition Principal Diagnosis: Influenza Additional Diagnosis: Atrial fibrillation Discharge Disposition: home or self care Discharge Instructions General Discharge Information Code Status: Full Code Patient's Diet: Heart healthy diet Patient's Activity: As tolerated Follow-Up Instructions/Appts: Please follow-up with your primary care provider within 1-2 weeks of discharge Please follow-up with steam brush operator as outpatient within 1-2 weeks of discharge. Please follow-up with Dr. Silvestre as outpatient within 1-2 weeks of discharge. Please follow-up with the teacher of the sight impaired and schedule your stress test as outpatient. Medications at Discharge Discharge Medications: Stop taking the following medications: Amoxicillin/Clavulanate Potass (Amox-Clav 875-125 MG Tablet) 875 MG-125 MG TABLET ORAL TWICE DAILY Qty = 20 Carvedilol (Carvedilol) 25 MG TABLET ORAL TWICE DAILY Continue taking these medications: Omeprazole (Omeprazole) 20 MG TABLET. 1 Tablet ORAL DAILY Aspirin (Ecotrin*) 81 MG TABLET.DR 1 Tablet ORAL DAILY Hydrochlorothiazide (Hydrochlorothiazide) 25 MG TABLET 1 Tablet ORAL DAILY Qty = 90 Lidocaine (Lidoderm) 5 % ADH..PATCH 1 Patch On the skin DAILY Instructions: may wear up to 12 hours Diazepam (Diazepam) 5 MG TABLET 0.5 Tablet ORAL as needed for AMXIETY Fluticasone Propionate (Fluticasone Propionate) 50 MCG/ACTUATION SPRAY.SUSP 1 [place] Both sides of nose DAILY Qty = 16 Tiotropium Br/Olodaterol HCl (Stiolto Respimat Inhal [place]) 2.5 MCG-2.5 MCG/ ACTUATION MIST.INHAL 2 PUFF Inhale through mouth DAILY Qty = 12 Albuterol Sulfate (Proair Hfa) 90 MCG HFA.AER.AD 2 Puff Inhale through mouth as needed for RESP. Qty = 42 Start taking the following new medications: Sotalol (Betapace) 80 MG TABLET 40 Milligram ORAL TWICE DAILY Qty = 30 Refills = 1 Instructions: . Apixaban (Eliquis) 5 MG TABLET 5 Milligram ORAL TWICE DAILY Qty = 30 Refills = 1 Instructions: . Oseltamivir Phosphate (Tamiflu) 75 MG CAPSULE 75 Milligram ORAL TWICE DAILY Qty = 3 No Refills Instructions: . The following medications have been changed: Old: Prednisone (Prednisone) 5 MG TABLET 1 Tablet ORAL DAILY Qty = 30 New: Prednisone (Prednisone) 5 MG TABLET 1 Tablet ORAL DAILY Qty = 30 Instructions: . Comments: PLEASE TAKE 2 TABS ON 04/04/17 AND 04/05/17 AND CONTINUE 1 TAB DAILY FROM 04/06 Copies To: Alex MANCINI,Alhaji Bedolla; Sherwin MANCINI,Tal Laura MD PHD,Ronnell Bedolla Attending MD Review Statement Documenting Attending: Darryl MANCINI,Bradley Other Findings: Discharged in stable condition
== END 2017-04-03 15:00 | DRG 194 ==
LOC: ERH 19:46 → 1NO 22:28 → ERHI 22:28 → ENRESERV 03-31 → 1NO 03-31 01:52 → ENPENDDIS 04-03 10:53 → 1NO 04-03 15:00 → ENTRNSPT 04-03 15:04 → EDTRNSPT 04-03 15:09 → EDTRNSPTSTS 04-03 15:09 → CMPTRNSPT 04-03 15:41
PROVIDERS: Dermatology; Emergency Medicine; Student in an Organized Health Care Education/Training Program
DX: J10.1 Influenza due to other identified influenza virus with other respiratory manifestations (principal); J44.1 Chronic obstructive pulmonary disease with (acute) exacerbation; J94.8 Other specified pleural conditions; G62.9 Polyneuropathy, unspecified; I48.0 Paroxysmal atrial fibrillation; C34.90 Malignant neoplasm of unspecified part of unspecified bronchus or lung; C34.91 Malignant neoplasm of unspecified part of right bronchus or lung; E05.90 Thyrotoxicosis, unspecified without thyrotoxic crisis or storm; Z92.21 Personal history of antineoplastic chemotherapy; I10 Essential (primary) hypertension; R00.0 Tachycardia, unspecified; E78.5 Hyperlipidemia, unspecified; M54.9 Dorsalgia, unspecified; Z87.891 Personal history of nicotine dependence; E03.9 Hypothyroidism, unspecified
CPT/HCPCS: 1NP; ERO; 36415; 71045; 82436; 86376; 86800; 87804; 87804-59; 93005; 93010; 93306; J1644; J2920; J2930; J7512